=== PATIENT | female | born 1970 | race Caucasian/White ===

== ENCOUNTER 2025-04-09 08:08 | Inpatient (IN) ==
--- NOTE | 2025-04-09 08:26 | Emergency Department Note ---
History of Present Illness General Chief complaint: GI Assessment Stated complaint: DIVERTICULITIS Time Seen by Provider: 04/09/25 08:15 History of Present Illness Maximum Pain Intensity: 5 This is a 54-year-old female with a history of hypertension, polycystic kidney disease that presents to the emergency department via private vehicle with complaints of "abdominal pain". The patient said 5 days ago she began with bilateral flank pain which she describes as "kidney pain". She then notes that this became more lower abdominal pain and had trouble with bowel movements. She took stool softeners and produce bowel movements yesterday and overnight. No blood in the stool. The patient denies any fevers or chills. No nausea or vomiting. Home Medications Medication Instructions Recorded Confirmed Type vit B12 50 mcg-iodine 75 mcg-mag 1 cap PO DAILY #90 caps 02/12/19 04/09/25 Rx 100 [id number] 193 capsule cholecalciferol (vitamin D3) 25 25 mcg PO DAILY #30 caps 10/09/23 04/09/25 Rx mcg (1,000 unit) capsule famotidine 20 mg tablet 20 mg PO DAILY 04/09/25 04/09/25 History lisinopril 10 mg tablet 10 mg PO QAM 04/09/25 04/09/25 History Allergies Allergy/AdvReac Type Severity Reaction Status Date / Time No Known Allergies Allergy Verified 10/09/23 13:45 Past Med/Surg History Problem List (Updated 04/09/25 @ 14:17 by Dean Cortes PA-C) Colonic diverticular abscess (Acute) Hypertension (Chronic) Former smoker (Chronic) Iron deficiency anemia (Chronic) Mitral valve prolapse (Chronic) Polycystic kidney, autosomal dominant (Chronic) Vitamin D deficiency (Chronic) Surgical History H/O LEEP History of tubal ligation History of tonsillectomy and adenoidectomy History of esophagogastroduodenoscopy (EGD) History of colonoscopy Family History Brother Hypertension Kidney disease Father Hypertension Kidney disease Polycystic kidney disease Mother Hypertension Diabetes Uncle Myocardial infarction Sister Polycystic kidney disease Denies family history of Ovarian cancer Prostate cancer Breast cancer Colorectal cancer Social History Smoking Status: Former smoker Tobacco Type: Cigarettes Do You Dip or Chew Tobacco: No; Preferred Language: Setswana marital status: Current Living Situation: Family Current Living Situation Comment: One daughter in good health. 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 [place] Feels Safe at Home: Yes Review of Systems A total of 10 systems reviewed and were otherwise negative Physical Exam Vital Signs Vital Signs - 24 hr 04/09/25 08:12 04/09/25 09:44 04/09/25 09:48 Temperature 36.5 C Temperature Source Temporal Artery Scan Pulse Rate 100 H 79 80 Pulse Rate [Right Finger] Pulse Rate from SpO2 Sensor 80 Respiratory Rate 20 20 Respiratory Effort / Characteristics Non-Labored Spontaneous Respiratory Depth Normal Blood Pressure 131/79 Blood Pressure [Right Arm] Blood Pressure Mean 96 Blood Pressure Mean [Right Arm] Pulse Oximetry 100 99 Oxygen Delivery Method Room Air Sepsis Recent Fever Within 48 Hours No Sepsis New/Unexplained Change in Mental Status N/A Sepsis Action Taken by Nursing No Action Required 04/09/25 09:51 04/09/25 10:00 04/09/25 10:37 Temperature Temperature Source Pulse Rate 79 Pulse Rate [Right Finger] Pulse Rate from SpO2 Sensor 77 Respiratory Rate 18 Respiratory Effort / Characteristics Respiratory Depth Blood Pressure 135/84 121/78 Blood Pressure [Right Arm] Blood Pressure Mean 100 103 Blood Pressure Mean [Right Arm] Pulse Oximetry 98 Oxygen Delivery Method Sepsis Recent Fever Within 48 Hours Sepsis New/Unexplained Change in Mental Status Sepsis Action Taken by Nursing 04/09/25 10:37 04/09/25 10:39 04/09/25 10:42 Temperature Temperature Source Pulse Rate 94 H 91 H Pulse Rate [Right Finger] Pulse Rate from SpO2 Sensor 96 H 91 H Respiratory Rate 22 13 Respiratory Effort / Characteristics Respiratory Depth Blood Pressure 121/78 Blood Pressure [Right Arm] Blood Pressure Mean 103 Blood Pressure Mean [Right Arm] Pulse Oximetry 99 99 Oxygen Delivery Method Sepsis Recent Fever Within 48 Hours Sepsis New/Unexplained Change in Mental Status Sepsis Action Taken by Nursing 04/09/25 11:00 04/09/25 11:00 04/09/25 11:00 Temperature Temperature Source Pulse Rate 84 Pulse Rate [Right Finger] Pulse Rate from SpO2 Sensor 85 Respiratory Rate 23 Respiratory Effort / Characteristics Respiratory Depth Blood Pressure 123/71 123/71 Blood Pressure [Right Arm] Blood Pressure Mean 89 89 Blood Pressure Mean [Right Arm] Pulse Oximetry 99 Oxygen Delivery Method Sepsis Recent Fever Within 48 Hours Sepsis New/Unexplained Change in Mental Status Sepsis Action Taken by Nursing 04/09/25 11:12 04/09/25 11:16 04/09/25 11:21 Temperature Temperature Source Pulse Rate 87 90 Pulse Rate [Right Finger] 88 Pulse Rate from SpO2 Sensor 86 91 H Respiratory Rate 12 18 15 Respiratory Effort / Characteristics Respiratory Depth Blood Pressure Blood Pressure [Right Arm] 123/71 Blood Pressure Mean Blood Pressure Mean [Right Arm] 88 Pulse Oximetry 100 99 98 Oxygen Delivery Method Room Air Sepsis Recent Fever Within 48 Hours Sepsis New/Unexplained Change in Mental Status Sepsis Action Taken by Nursing 04/09/25 11:30 04/09/25 11:48 04/09/25 12:01 Temperature Temperature Source Pulse Rate 91 H 84 Pulse Rate [Right Finger] Pulse Rate from SpO2 Sensor 90 84 Respiratory Rate 20 13 Respiratory Effort / Characteristics Respiratory Depth Blood Pressure 133/102 H Blood Pressure [Right Arm] Blood Pressure Mean 106 Blood Pressure Mean [Right Arm] Pulse Oximetry 98 98 Oxygen Delivery Method Sepsis Recent Fever Within 48 Hours Sepsis New/Unexplained Change in Mental Status Sepsis Action Taken by Nursing 04/09/25 12:03 04/09/25 12:12 04/09/25 12:33 Temperature Temperature Source Pulse Rate 88 84 81 Pulse Rate [Right Finger] Pulse Rate from SpO2 Sensor 88 84 82 Respiratory Rate 24 23 18 Respiratory Effort / Characteristics Respiratory Depth Blood Pressure Blood Pressure [Right Arm] Blood Pressure Mean Blood Pressure Mean [Right Arm] Pulse Oximetry 97 97 98 Oxygen Delivery Method Sepsis Recent Fever Within 48 Hours Sepsis New/Unexplained Change in Mental Status Sepsis Action Taken by Nursing 04/09/25 12:57 04/09/25 13:03 04/09/25 13:15 Temperature Temperature Source Pulse Rate 81 77 78 Pulse Rate [Right Finger] Pulse Rate from SpO2 Sensor 81 78 78 Respiratory Rate 23 18 19 Respiratory Effort / Characteristics Respiratory Depth Blood Pressure Blood Pressure [Right Arm] Blood Pressure Mean Blood Pressure Mean [Right Arm] Pulse Oximetry 98 98 98 Oxygen Delivery Method Sepsis Recent Fever Within 48 Hours Sepsis New/Unexplained Change in Mental Status Sepsis Action Taken by Nursing 04/09/25 13:30 Temperature Temperature Source Pulse Rate 83 Pulse Rate [Right Finger] Pulse Rate from SpO2 Sensor 82 Respiratory Rate 14 Respiratory Effort / Characteristics Respiratory Depth Blood Pressure Blood Pressure [Right Arm] Blood Pressure Mean Blood Pressure Mean [Right Arm] Pulse Oximetry 99 Oxygen Delivery Method Sepsis Recent Fever Within 48 Hours Sepsis New/Unexplained Change in Mental Status Sepsis Action Taken by Nursing VITAL SIGNS - Vital signs and nursing notes were reviewed. Tachycardic at 100, otherwise stable and afebrile. GENERAL - 54-year-old female appearing her stated age who is in no acute distress. Communicates well with provider and answers questions appropriately. SKIN - Without rashes. HEAD - NC/AT. EYES - PERRL with EOMI bilaterally. Sclera anicteric. EARS - No deformities of external structures noted on gross examination bilaterally. No pain elicited with palpation of the tragus bilaterally. External auditory canals without discharge or otorrhea. Tympanic membranes pearly nielson without retraction or bulging. No fluid or purulent material visualized behind the TM. Handle of malleus, umbo, cone of light, pars tensa/flaccid all easily visualized. NOSE - Midline and without cyanosis. No epistaxis or purulent drainage noted. MOUTH/OROPHARYNX - Without perioral cyanosis. NECK - Neck with FROM. No nuchal rigidity. LUNGS - CTA CARDIAC - RRR ABDOMEN - Abdominal contour normal without pulsations or visible masses. BS normoactive all four quadrants. There is lower abdominal tenderness to palpation. No palpable masses, hepatosplenomegaly, or ascites noted. EXTREMITIES - No clubbing or peripheral cyanosis. +5/5 strength noted in UE/LE bilaterally. NEUROLOGIC - Cranial nerves II through XII grossly intact. PSYCH -alert, oriented and pleasant on exam Course Administered Medications Discontinued Medications Sodium Chloride (Nss) 1,000 mls @ 999 mls/hr IV .Q1H1M ONE Stop: 04/09/25 09:23 Last Infusion: 04/09/25 10:21 Dose: Infused Documented By: Admin: 04/09/25 08:53 Dose: 999 mls/hr Documented By: BETTYE Piperacillin Sod/Tazobactam Sod (Zosyn) 4.5 gm in 100 mls @ 200 mls/hr IV NOW ONE; Protocol Stop: 04/09/25 10:22 Last Infusion: 04/09/25 11:10 Dose: Infused Documented By: chanel Admin: 04/09/25 10:36 Dose: 200 mls/hr Documented By: BETTYE Vancomycin HCl 1,250 mg/ (Sodium Chloride) 525 mls @ 200 mls/hr IV NOW ONE Stop: 04/09/25 12:31 Last Admin: 04/09/25 11:07 Dose: 200 mls/hr Documented By: chanel Ioversol (Optiray 320 100ml) 94 ml IV ONCE ONE Stop: 04/09/25 09:20 Last Admin: 04/09/25 09:19 Dose: 94 ml Documented By: ADRIANA Medical Decision Making Laboratory Data 04/09/25 10:02 04/09/25 09:44 Lab Results 04/09/25 04/09/25 04/09/25 Range/Units 08:38 08:44 09:44 WBC Cancelled RBC Cancelled Hgb Cancelled POC Hgb 12.2 (12.0-16.0) g/dl Hct Cancelled POC Hct 36 L (37-47) % MCV Cancelled MCH Cancelled MCHC Cancelled RDW Std Deviation Cancelled RDW Coeff of Yuliana Cancelled Plt Count Cancelled MPV Cancelled Immature Gran % (Auto) Cancelled Neut % (Auto) Cancelled Lymph % (Auto) Cancelled [place] % (Auto) Cancelled Eos % (Auto) Cancelled Baso % (Auto) Cancelled Neut # (Auto) Cancelled Lymph # (Auto) Cancelled [place] # (Auto) Cancelled Eos # (Auto) Cancelled Baso # (Auto) Cancelled Immature Gran # (Auto) Cancelled Absolute Nucleated RBC Cancelled Nucleated RBC % (auto) Cancelled Neutrophils % (Manual) Cancelled Band Neutrophils % Cancelled Lymphocytes % (Manual) Cancelled Prolymphocyte % Cancelled Reactive Lymphs % (Man) Cancelled Monocytes % (Manual) Cancelled Eosinophils % (Manual) Cancelled Basophils % (Manual) Cancelled Metamyelocytes % (Man) Cancelled Myelocytes % (Man) Cancelled Promyelocytes % (Man) Cancelled Blast Cells % (Manual) Cancelled Plasma Cell % (Manual) Cancelled Other Cells % Cancelled Nucleated RBC % Cancelled Neutrophils # (Manual) Cancelled Band Neutrophils # Cancelled Total Absolute Neuts Cancelled Lymphocytes # (Manual) Cancelled Prolymphocyte # Cancelled Reactive Lymphs # Cancelled Total Abs Lymphocytes Cancelled Monocytes # (Manual) Cancelled Eosinophils # (Manual) Cancelled Basophils # (Manual) Cancelled Metamyelocytes # (Man) Cancelled Myelocytes # (Manual) Cancelled Promyelocytes # (Man) Cancelled Blast Cells # (Man) Cancelled Plasma Cell # (Manual) Cancelled Other Cells # Cancelled Nucleated RBCs # (Man) Cancelled Hypersegmented Neuts Cancelled Hyposegmented Neuts Cancelled Hypogranular Neuts Cancelled Large Granular Lymphs Cancelled # Lrg Granular Lymphs Cancelled Hairy Cells Cancelled Smudge Cells Cancelled Toxic Granulation Cancelled Toxic Vacuolation Cancelled Dohle Bodies Cancelled Troy Rods Cancelled Platelet Estimate Cancelled Hypogranular Platelets Cancelled Giant Platelets Cancelled Platelet Satelliting Cancelled RBC Morphology Cancelled Polychromasia Cancelled Hypochromasia Cancelled Poikilocytosis Cancelled Basophilic Stippling Cancelled Anisocytosis Cancelled Microcytosis Cancelled Macrocytosis Cancelled Spherocytes Cancelled Pappenheimer Bodies Cancelled Sickle Cells Cancelled Target Cells Cancelled Tear Drop Cells Cancelled Ovalocytes Cancelled Stomatocytes Cancelled Smith-Dorothy Bodies Cancelled Echinocytes Cancelled Acanthocytes (Spur) Cancelled Rouleaux Cancelled RBC Agglutinates Cancelled Schistocytes Cancelled Sezary Cell Cancelled POC Sodium 131 L (135-144) mmol/L Sodium TNP 134 L POC Potassium 5.4 H (3.3-5.0) mmol/L Potassium TNP 3.9 POC Chloride 101 (101-112) mmol/L Chloride 99 (98-107) mmol/L Carbon Dioxide 25 (21-32) mmol/L POC Total CO2 25 (24-31) mmol/L Anion Gap TNP POC Anion Gap 12.0 L (16-25) mmol/L POC BUN 27 H (7-18) mg/dl BUN 20 (6-23) mg/dl Creatinine 0.89 (0.6-1.2) mg/dl POC Creatinine 1.0 (0.6-1.3) mg/dl Est Cr Clr Drug Dosing 70.3 ml/min eGFR 77.00 BUN/Creatinine Ratio 22.5 H (10-20) Glucose 121 H (70-99(Fasting)) mg/dl POC Glucose (other) 122 H (70-99) mg/dl Lactate (0.4-2.0) mmol/L Calcium 9.4 (8.6-10.3) mg/dl POC Ioniz Calcium Susan 1.00 L (1.12-1.32) mmol/l Total Bilirubin 0.7 (0.2-1.0) mg/dl AST TNP 9 L ALT 8 (7-52) U/L Alkaline Phosphatase 75 (34-104) U/L Total Protein 7.6 (6.0-8.3) gm/dl Albumin 3.7 (3.4-5.0) gm/dl Globulin 3.9 (2.5-4.0) gm/dl Albumin/Globulin Ratio 0.9 (0.9-2) Lipase 5 L (11-82) U/L Procalcitonin (0-0.5) ng/ml Urine Color Urine Appearance (Clear) Urine pH (4.5-7.5) Ur Specific [place] (1.000-1.030) Urine Protein (Negative) Urine Glucose (UA) (Negative) Urine Ketones (Negative) Urine Blood (Negative) Urine Nitrite (Negative) Urine Bilirubin (Negative) Urine Urobilinogen (Negative) Ur Leukocyte Esterase (Negative) Urine WBC (Auto) (0-5) /hpf Urine RBC (Auto) (0-2) /hpf U Hyaline Cast (Auto) (0-2) /lpf U Epithel Cells (Auto) (0-2) /hpf Urine Bacteria (Auto) (None Seen) Urine Comment Blood Parasites ID Cancelled 04/09/25 04/09/25 04/09/25 Range/Units 10:02 10:07 10:38 WBC 11.66 H RBC 3.64 L Hgb 10.0 L POC Hgb (12.0-16.0) g/dl Hct 30.8 L POC Hct (37-47) % MCV 84.6 MCH 27.5 MCHC 32.5 RDW Std Deviation 41.1 RDW Coeff of Yuliana 13.2 Plt Count 185 MPV 10.5 Immature Gran % (Auto) 0.5 Neut % (Auto) 85.1 Lymph % (Auto) 7.4 [place] % (Auto) 6.9 Eos % (Auto) 0.0 Baso % (Auto) 0.1 Neut # (Auto) 9.93 H Lymph # (Auto) 0.86 L [place] # (Auto) 0.80 H Eos # (Auto) 0.00 Baso # (Auto) 0.01 Immature Gran # (Auto) 0.06 Absolute Nucleated RBC Nucleated RBC % (auto) Neutrophils % (Manual) Band Neutrophils % Lymphocytes % (Manual) Prolymphocyte % Reactive Lymphs % (Man) Monocytes % (Manual) Eosinophils % (Manual) Basophils % (Manual) Metamyelocytes % (Man) Myelocytes % (Man) Promyelocytes % (Man) Blast Cells % (Manual) Plasma Cell % (Manual) Other Cells % Nucleated RBC % Neutrophils # (Manual) Band Neutrophils # Total Absolute Neuts Lymphocytes # (Manual) Prolymphocyte # Reactive Lymphs # Total Abs Lymphocytes Monocytes # (Manual) Eosinophils # (Manual) Basophils # (Manual) Metamyelocytes # (Man) Myelocytes # (Manual) Promyelocytes # (Man) Blast Cells # (Man) Plasma Cell # (Manual) Other Cells # Nucleated RBCs # (Man) Hypersegmented Neuts Hyposegmented Neuts Hypogranular Neuts Large Granular Lymphs # Lrg Granular Lymphs Hairy Cells Smudge Cells Toxic Granulation Toxic Vacuolation Dohle Bodies [place] Rods Platelet Estimate Hypogranular Platelets Giant Platelets Platelet Satelliting RBC Morphology Polychromasia Hypochromasia Poikilocytosis Basophilic Stippling Anisocytosis Microcytosis Macrocytosis Spherocytes Pappenheimer Bodies Sickle Cells Target Cells Tear Drop Cells Ovalocytes Stomatocytes Smith-Dorothy Bodies Echinocytes Acanthocytes (Spur) Rouleaux RBC Agglutinates Schistocytes [place] Cell POC Sodium (135-144) mmol/L Sodium POC Potassium (3.3-5.0) mmol/L Potassium POC Chloride (101-112) mmol/L Chloride (98-107) mmol/L Carbon Dioxide (21-32) mmol/L POC Total CO2 (24-31) mmol/L Anion Gap POC Anion Gap (16-25) mmol/L POC BUN (7-18) mg/dl BUN (6-23) mg/dl Creatinine (0.6-1.2) mg/dl POC Creatinine (0.6-1.3) mg/dl Est Cr Clr Drug Dosing ml/min eGFR BUN/Creatinine Ratio (10-20) Glucose (70-99(Fasting)) mg/dl POC Glucose (other) (70-99) mg/dl Lactate 0.8 (0.4-2.0) mmol/L Calcium (8.6-10.3) mg/dl POC Ioniz Calcium Susan (1.12-1.32) mmol/l Total Bilirubin (0.2-1.0) mg/dl AST ALT (7-52) U/L Alkaline Phosphatase (34-104) U/L Total Protein (6.0-8.3) gm/dl Albumin (3.4-5.0) gm/dl Globulin (2.5-4.0) gm/dl Albumin/Globulin Ratio (0.9-2) Lipase (11-82) U/L Procalcitonin 0.55 H (0-0.5) ng/ml Urine Color Yellow Urine Appearance Clear (Clear) Urine pH 6.5 (4.5-7.5) Ur Specific [place] 1.033 H (1.000-1.030) Urine Protein Negative (Negative) Urine Glucose (UA) Negative (Negative) Urine Ketones 1+ H (Negative) Urine Blood Trace H (Negative) Urine Nitrite Negative (Negative) Urine Bilirubin Negative (Negative) Urine Urobilinogen Negative (Negative) Ur Leukocyte Esterase Negative (Negative) Urine WBC (Auto) 0-5 (0-5) /hpf Urine RBC (Auto) 0-2 (0-2) /hpf U Hyaline Cast (Auto) 0-2 (0-2) /lpf U Epithel Cells (Auto) 0-2 (0-2) /hpf Urine Bacteria (Auto) None Seen (None Seen) Urine Comment Blood Parasites ID Imaging Data Radiologist's Impression: Abdomen/Pelvis CT 04/09/25 08:23 CT SCAN OF THE ABDOMEN AND PELVIS WITH IV CONTRAST CLINICAL HISTORY: Lower abdominal pain. Flank pain. COMPARISON STUDY: Renal ultrasound March 04, 2023. CT of the abdomen and pelvis May 13, 2012. TECHNIQUE: Following the IV administration of 94 cc of Optiray 320, CT scan of the abdomen and pelvis is performed from the lung bases to the proximal femora. Images are reviewed in the axial, sagittal, and coronal planes. IV contrast was administered without complication. A dose lowering technique was utilized adhering to the principles of ALARA. CT DOSE: 745.01 mGy.cm FINDINGS: Visualized lung bases are unremarkable. Innumerable hepatic and bilateral renal cysts are noted. The number of hepatic cysts as increased since prior CT. Renal cysts appear relatively similar in appearance. Associated renal enlargement is noted. Index right hepatic dome cyst on image 71 of 385 measures 4.9 cm. Several partially calcified left renal cysts are present. There is no hydronephrosis. The spleen, adrenal glands and pancreas are unremarkable. There is no evidence for a bowel obstruction. There is extensive colonic diverticulosis. Of note, there is extensive pelvic inflammation centered on the right lateral aspect of the distal sigmoid colon. There is a 1.6 cm pocket of extraluminal gas on image 287. This suggests a contained perforation, likely arising from a perforated sigmoid diverticulum. Adjacent inflammation is noted as well as a 2.5 x 2.5 cm pocket of fluid within the right hemipelvis, adjacent to small bowel is. This has peripheral enhancement and suggests a developing abscess. No drainable fluid collection is present. There is associated extraperitoneal/retroperitoneal infiltration which extends superiorly into the presacral region. Right ureteral wall thickening is reactive. Intraperitoneal inflammation is also noted. There is moderate wall thickening of several adjacent ileal loops which is likely reactive. IMPRESSION: 1. Colonic diverticulosis. Extensive pelvic inflammation likely secondary to perforated diverticulitis of the sigmoid colon. Small pocket of extraluminal gas consistent with a contained perforation along the distal sigmoid colon. Associated retroperitoneal/extraperitoneal and intraperitoneal inflammation, as described above. Adjacent 2.5 x 2.5 cm pocket of fluid within the right hemipelvis with peripheral enhancement. This suggests a developing abscess. No drainable fluid collections. Wall thickening of several adjacent small bowel loops and the right ureter is likely reactive. Surgical consultation is recommended. In addition, a follow-up colonoscopy once symptoms resolve is recommended to exclude the possibility of an underlying colonic lesion. 2. Innumerable renal and hepatic cysts consistent with autosomal dominant polycystic kidney disease. 3. No bowel obstruction. ACT 112: Negative or not required by law. Electronically signed by: Tushar Holman M.D. 04/09/2025 9:51 AM MDM Narrative Patient was seen and evaluated as above in room B9. Review was performed of triage nursing notes and vital signs. I did review pertinent previous visits and patient history. After obtaining a thorough history and physical examination the above work up was performed. Patient presents with the above symptoms. She notes 5 days of flank/abdominal pain, intermittent fevers. On assessment she has a benign abdomen. Her vital signs are stable. She does appear clinically dry. Options of care were discussed with the patient. IV access was established. Labs were drawn. There is leukocytosis 11.66. Mild anemia at 10.0. Hyponatremia 134. No emergent metabolic disturbance. The patient's procalcitonin is mildly elevated and lactate is normal. She respectfully declined pain medication. CT scan as above. There are extensive inflammatory findings suggestive of likely perforated diverticulitis with fluid collections. I did order IV antibiotics. Blood cultures, lactate, Pro-Christopher also added. General surgery consultation recommended. [id number] called and spoke with JORGE ALBERTO Perdomo with interventional radiology. We reviewed the imaging. The fluid collections are not amenable to IR drainage noting location. [id number] spoke with Dr. Gaytan, general surgery. Plan at this time is IV antibiotics and for the present time no indication for emergent surgery. Patient will be admitted to the medicine service. Please refer to further documentation regarding her stay. GCS: 15 In the evaluation and treatment of this patient the following differential diagnoses were entertained: Diverticulitis, perforation, abscess, UTI, pyelonephritis, among others Impression & Plan Colonic diverticular abscess Discharge Plan Visit Data Chief Complaint: GI Assessment Stated Complaint: DIVERTICULITIS ED Provider: Manolo Perez ED Midlevel Provider: Dean Cortes Discharge Problem: Colonic diverticular abscess Patient Disposition: Admitted As Inpatient Condition: Good Forms Stand Alone Forms: My Cam[employer] Prescriptions Prescriptions: No Action [id number] 50 mcg-75 mcg -100 mg capsule 1 cap PO DAILY Qty: 90 0RF cholecalciferol (vitamin D3) 25 mcg (1,000 unit) capsule 25 mcg PO DAILY Qty: 30 0RF famotidine 20 mg Tablet 20 mg PO DAILY lisinopril 10 mg tablet 10 mg PO QAM Referrals Referrals: PCP,NO [Primary Care Provider] -
[2025-04-09] MEDS: SODIUM CHLORIDE 0.9% 1,000 ML IV ONE (08:53)
[2025-04-09 09:14] LABS: Alanine Aminotransferase 8 U/L (7-52); Albumin Globulin Ratio 0.9 (0.9-2); Albumin Level 3.7 gm/dl (3.4-5.0); Alkaline Phosphatase 75 U/L (34-104); Bilirubin,Total 0.7 mg/dl (0.2-1.0); Blood Urea Nitrogen 20 mg/dl (6-23); Calcium 9.4 mg/dl (8.6-10.3); Carbon Dioxide 25 mmol/L (21-32); Chloride 99 mmol/L (98-107); Creatinine Clr Calc Pharmacy 70.3 ml/min; Globulin 3.9 gm/dl (2.5-4.0); Glucose 121 mg/dl (70-99(Fasting)); Lipase 5 U/L (11-82); Total Protein 7.6 gm/dl (6.0-8.3)
[2025-04-09] MEDS: OPTIRAY 320 100ml IV ONE (09:19)
--- NOTE | 2025-04-09 09:52 | CT Scan Report ---
CT SCAN OF THE ABDOMEN AND PELVIS WITH IV CONTRAST CLINICAL HISTORY: Lower abdominal pain. Flank pain. COMPARISON STUDY: Renal ultrasound March 04, 2023. CT of the abdomen and pelvis May 13 2. TECHNIQUE: Following the IV administration of 94 cc of Optiray 320, CT scan of the abdomen and pelvi s is performed from the lung bases to the proximal femora. Images are reviewed in the axial, sagittal , and coronal planes. IV contrast was administered without complication. A dose lowering technique wa s utilized adhering to the principles of ALARA. CT DOSE: 745.01 mGy.cm FINDINGS: Visualized lung bases are unremarkable. Innumerable hepatic and bilateral renal cysts are n oted. The number of hepatic cysts as increased since prior CT. Renal cysts appear relatively similar in appearance. Associated renal enlargement is noted. Index right hepatic dome cyst on image 71 of 38 5 measures 4.9 cm. Several partially calcified left renal cysts are present. There is no hydronephros is. The spleen, adrenal glands and pancreas are unremarkable. There is no evidence for a bowel obstru ction. There is extensive colonic diverticulosis. Of note, there is extensive pelvic inflammation angel tered on the right lateral aspect of the distal sigmoid colon. There is a 1.6 cm pocket of extralumin al gas on image 287. This suggests a contained perforation, likely arising from a perforated sigmoid diverticulum. Adjacent inflammation is noted as well as a 2.5 x 2.5 cm pocket of fluid within the rig ht hemipelvis, adjacent to small bowel is. This has peripheral enhancement and suggests a developing abscess. No drainable fluid collection is present. There is associated extraperitoneal/retroperitonea l infiltration which extends superiorly into the presacral region. Right ureteral wall thickening is reactive. Intraperitoneal inflammation is also noted. There is moderate wall thickening of several ad jacent ileal loops which is likely reactive. IMPRESSION: 1. Colonic diverticulosis. Extensive pelvic inflammation likely secondary to perforated diverticuliti s of the sigmoid colon. Small pocket of extraluminal gas consistent with a contained perforation juice g the distal sigmoid colon. Associated retroperitoneal/extraperitoneal and intraperitoneal inflammati on, as described above. Adjacent 2.5 x 2.5 cm pocket of fluid within the right hemipelvis with periph eral enhancement. This suggests a developing abscess. No drainable fluid collections. Wall thickening of several adjacent small bowel loops and the right ureter is likely reactive. Surgical consultation is recommended. In addition, a follow-up colonoscopy once symptoms resolve is recommended to exclude the possibility of an underlying colonic lesion. 2. Innumerable renal and hepatic cysts consistent with autosomal dominant polycystic kidney disease. 3. No bowel obstruction. ACT 112: Negative or not required by law. Electronically signed by: Tushar Holman M.D. 04/09/2025 9:51 AM
[2025-04-09] MEDS ORDERED: VANCOMYCIN CONSULT ACTIVE PRN (09:54)
[2025-04-09 10:17] LABS: Potassium 3.9 mmol/L (3.5-5.1); Sodium 134.0 mmol/L (136-145)
[2025-04-09 10:22] LABS: Hematocrit (blood only) 30.8 % (37.0-47.0); Hemoglobin 10.0 g/dl (12.0-16.0); Immature Granulocytes # (auto) 0.06 K/uL (0.01-0.20); Immature Granulocytes % (auto) 0.5 %; Mean Corpuscular Hemoglobin 27.5 pg (25.0-34.0); Mean Corpuscular Volume 84.6 fL (80.0-100.0); Platelet Count 185 K/uL (130-400); RDW Standard Deviation 41.1 fL (36.4-46.3); Red Blood Count 3.64 M/uL (4.20-5.40); White Blood Count 11.66 K/ul (4.8-10.8)
[2025-04-09] MEDS: PIPERACILLIN/TAZOBACTAM 4.5 GM/100 ML BAG IV ONE (10:36)
[2025-04-09] MEDS: VANCOMYCIN HCL 1,250 MG in SODIUM CHLORIDE 0.9% 500 ML IV ONE (11:07)
[2025-04-09 11:15] LABS: Appearance Urine Clear (Clear); Bacteria Urine Automated None Seen (None Seen); Cast Urine Automated 0-2 /lpf (0-2); Epithelial Cell Urine Auto 0-2 /hpf (0-2); Glucose Urine UA Negative (Negative); RBC Urine Automated 0-2 /hpf (0-2); WBC Urine Automated 0-5 /hpf (0-5)
--- NOTE | 2025-04-09 12:04 | History & Physical Report ---
Date of Service April 09, 2025 Assessment & Plan (1) Hypertension: (2) Polycystic kidney, autosomal dominant: (3) Vitamin D deficiency: (4) Mitral valve prolapse: (5) Iron deficiency anemia: (6) Colonic diverticular abscess: Plan #acute colonic diverticulitis #acute diverticulitis abscess - CT findings, not amenable to interventional radiology drainage, consult to general surgery initiate n.p.o., conservative measures at this time. - Strong preference for patient given her family history for colorectal surgery consult if intervention required - Zosyn initiated in the emergency department, with consult for vancomycin loading, MRSA swab sent - n.p.o., LR at 100 cc/h - serial inflammatory markers - minimal symptoms, no signs of obstruction or ileus. No indication for NG at this time #autosomal dominant polycystic kidney disease - follows with nephrology, will consult during hospitalization, blood pressures have been fairly well-controlled on lisinopril alone - will maintain a tight window for fluid status, minimize dehydration. Labile blood pressures initiate Vasotec if an acute blood pressure abortive medication is required #hypertension - continue lisinopril, within goal at this time, euvolemic #iron deficiency anemia - continue to monitor, within normal range at this time #vitamin D deficiency - hold supplement for now, no further testing required #FEN - n.p.o. as above, LR at 100 cc/h through the night. 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 She does have parents that are assisting. Consult to case management #CODE STATUS - full code per her wishes History of Present Illness Chief Complaint: abdominal pain Primary Care Provider: NO PCP 54-year-old female history of autosomal dominant polycystic kidney disease, hypertension, iron deficiency anemia, vitamin D deficiency with strong family history of colonic diverticulitis diverticulosis presents with a 1 week history of progressive lower abdominal pain. Dyspepsia. And most recently fevers chills and generalized malaise. States she was at her normal baseline of health then approximately 5 to 6 days ago she developed some mild discomfort. Not unusual for the type of cramping she would get with her polycystic kidney disease so she did not think much of it then approximately 3 days ago she developed more colicky type cramping in the lower abdomen decreased stool output. Mild nausea vomiting. Then over the last 48 hours felt feverish at times chills at times. And increasing malaise. Secondary to progressive symptoms she came to the emergency department for further evaluation. Initial evaluation with CT scan shows colonic diverticulosis/diverticulitis with a small amount of extraluminal free air and small fluid collection consistent with contained fluid early abscess. General surgery consulted recommended conservative management for the interim. She was given Zosyn, consult for vancomycin and referred for admission. Pain is well-controlled at this time minimal without palpation. Appetite has been decreased. Stool out had it but has been more formed over the last couple days. No unusual changes there. She does report several relatives with issues with diverticulitis, abscess and repetitive's surgical intervention. She has never had an episode of diverticulitis/diverticulosis or GI surgery in the past Allergies Allergy/AdvReac Type Severity Reaction Status Date / Time No Known Allergies Allergy Verified 10/09/23 13:45 Home Medications Medication Instructions Recorded Confirmed Type vit B12 50 mcg-iodine 75 mcg-mag 1 cap PO DAILY #90 caps 02/12/19 04/09/25 Rx 100 [id number] 193 capsule cholecalciferol (vitamin D3) 25 25 mcg PO DAILY #30 caps 10/09/23 04/09/25 Rx mcg (1,000 unit) capsule famotidine 20 mg tablet 20 mg PO DAILY 04/09/25 04/09/25 History lisinopril 10 mg tablet 10 mg PO QAM 04/09/25 04/09/25 History Past Med/Surg History Problem List (Updated 04/09/25 @ 11:59 by Mayco Silverman MD) Colonic diverticular abscess Hypertension (Chronic) Former smoker (Chronic) Iron deficiency anemia (Chronic) Mitral valve prolapse (Chronic) Polycystic kidney, autosomal dominant (Chronic) Vitamin D deficiency (Chronic) Surgical History H/O LEEP History of tubal ligation History of tonsillectomy and adenoidectomy History of esophagogastroduodenoscopy (EGD) History of colonoscopy Family History Brother Hypertension Kidney disease Father Hypertension Kidney disease Polycystic kidney disease Mother Hypertension Diabetes Uncle Myocardial infarction Sister Polycystic kidney disease Denies family history of Ovarian cancer Prostate cancer Breast cancer Colorectal cancer Social History Smoking Status: Former smoker Tobacco Type: Cigarettes Do You Dip or Chew Tobacco: No; Preferred Language: Slovenian marital status: Current Living Situation: Family Current Living Situation Comment: One daughter in good health. 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 [place] Feels Safe at Home: Yes Review of Systems Review of Systems: All systems reviewed & are unremarkable except as noted in HPI & below Eyes: no photophobia Respiratory: + dyspnea; no cough and no hemoptysis Cardiovascular: no chest pain, no chest pain with activity, no palpitations an d no lightheadedness Gastrointestinal: as per Subjective / HPI Genitourinary: as per Subjective / HPI Integumentary: no rash and no change in skin color Physical Exam Constitutional: WD/WN, vitals as above Eyes: PERRL, conjunctivae normal, anicteric sclerae ENMT: external ear and nose normal, oropharynx normal Mouth: dentition not poor MMM Respiratory: normal respiratory effort, lungs clear to auscultation Cardiovascular: RRR, no murmur, no edema Gastrointestinal (Abdomen): decreased bowel sounds, no distention, diffuse poorly localized tenderness across the lower aspect of the abdomen with no mass guarding or rebound. Palpation along the abdomen makes as though she feels as if she would need to urinate. No signs of heidy peritonitis Musculoskeletal: no cyanosis or clubbing, extremities motor strength 5/5 Skin: no rashes, warm and dry Neurologic: PERRL, EOMI, accommodation nl, no face palsy, no dysarthria Results & Data Results & Data Vital Signs (Past 12 Hours) Vital Signs Temp Pulse Pulse Resp BP BP Pulse Ox 04/09/25 11:16 88 18 123/71 99 04/09/25 11:12 87 12 100 04/09/25 11:00 123/71 04/09/25 11:00 123/71 04/09/25 11:00 84 23 99 04/09/25 10:42 91 H 13 99 04/09/25 10:39 94 H 22 99 04/09/25 10:37 121/78 04/09/25 10:37 121/78 04/09/25 10:00 135/84 04/09/25 09:51 79 18 98 04/09/25 09:48 80 20 99 04/09/25 09:44 79 04/09/25 08:12 36.5 C 100 H 20 131/79 100 O2 Del Method 04/09/25 11:16 Room Air 04/09/25 11:12 04/09/25 11:00 04/09/25 11:00 04/09/25 11:00 04/09/25 10:42 04/09/25 10:39 04/09/25 10:37 04/09/25 10:37 04/09/25 10:00 04/09/25 09:51 04/09/25 09:48 04/09/25 09:44 04/09/25 08:12 Room Air Laboratory Results 04/09/25 10:07 Aerobic Blood Culture - Pending Blood Anaerobic Blood Culture - Pending 04/09/25 10:02 Aerobic Blood Culture - Pending Blood Anaerobic Blood Culture - Pending 04/09/25 04/09/25 04/09/25 10:38 10:07 10:02 WBC 11.66 H RBC 3.64 L Hgb 10.0 L POC Hgb Hct 30.8 L POC Hct MCV 84.6 MCH 27.5 MCHC 32.5 RDW Std Deviation 41.1 RDW Coeff of Yuliana 13.2 Plt Count 185 MPV 10.5 Immature Gran % (Auto) 0.5 Neut % (Auto) 85.1 Lymph % (Auto) 7.4 [place] % (Auto) 6.9 Eos % (Auto) 0.0 Baso % (Auto) 0.1 Neut # (Auto) 9.93 H Lymph # (Auto) 0.86 L [place] # (Auto) 0.80 H Eos # (Auto) 0.00 Baso # (Auto) 0.01 Immature Gran # (Auto) 0.06 Absolute Nucleated RBC Nucleated RBC % (auto) Neutrophils % (Manual) Band Neutrophils % Lymphocytes % (Manual) Prolymphocyte % Reactive Lymphs % (Man) Monocytes % (Manual) Eosinophils % (Manual) Basophils % (Manual) Metamyelocytes % (Man) Myelocytes % (Man) Promyelocytes % (Man) Blast Cells % (Manual) Plasma Cell % (Manual) Other Cells % Nucleated RBC % Neutrophils # (Manual) Band Neutrophils # Total Absolute Neuts Lymphocytes # (Manual) Prolymphocyte # Reactive Lymphs # Total Abs Lymphocytes Monocytes # (Manual) Eosinophils # (Manual) Basophils # (Manual) Metamyelocytes # (Man) Myelocytes # (Manual) Promyelocytes # (Man) Blast Cells # (Man) Plasma Cell # (Manual) Other Cells # Nucleated RBCs # (Man) Hypersegmented Neuts Hyposegmented Neuts Hypogranular Neuts Large Granular Lymphs # Lrg Granular Lymphs Hairy Cells Smudge Cells Toxic Granulation Toxic Vacuolation Dohle Bodies [place] Rods Platelet Estimate Hypogranular Platelets Giant Platelets Platelet Satelliting RBC Morphology Polychromasia Hypochromasia Poikilocytosis Basophilic Stippling Anisocytosis Microcytosis Macrocytosis Spherocytes Pappenheimer Bodies Sickle Cells Target Cells Tear Drop Cells Ovalocytes Stomatocytes [place] Bodies Echinocytes Acanthocytes (Spur) Rouleaux RBC Agglutinates Schistocytes Sezary Cell POC Sodium Sodium POC Potassium Potassium POC Chloride Chloride Carbon Dioxide POC Total CO2 Anion Gap POC Anion Gap POC BUN BUN Creatinine POC Creatinine Est Cr Clr Drug Dosing eGFR BUN/Creatinine Ratio Glucose POC Glucose (other) Lactate 0.8 Calcium POC Ioniz Calcium Susan Total Bilirubin AST ALT Alkaline Phosphatase Total Protein Albumin Globulin Albumin/Globulin Ratio Lipase Procalcitonin 0.55 H Urine Color Yellow Urine Appearance Clear Urine pH 6.5 Ur Specific [place] 1.033 H Urine Protein Negative Urine Glucose (UA) Negative Urine Ketones 1+ H Urine Blood Trace H Urine Nitrite Negative Urine Bilirubin Negative Urine Urobilinogen Negative Ur Leukocyte Esterase Negative Urine WBC (Auto) 0-5 Urine RBC (Auto) 0-2 U Hyaline Cast (Auto) 0-2 U Epithel Cells (Auto) 0-2 Urine Bacteria (Auto) None Seen Urine Comment Blood Parasites ID 04/09/25 04/09/25 04/09/25 09:44 08:44 08:38 WBC Cancelled RBC Cancelled Hgb Cancelled POC Hgb 12.2 Hct Cancelled POC Hct 36 L MCV Cancelled MCH Cancelled MCHC Cancelled RDW Std Deviation Cancelled RDW Coeff of Yuliana Cancelled Plt Count Cancelled MPV Cancelled Immature Gran % (Auto) Cancelled Neut % (Auto) Cancelled Lymph % (Auto) Cancelled [place] % (Auto) Cancelled Eos % (Auto) Cancelled Baso % (Auto) Cancelled Neut # (Auto) Cancelled Lymph # (Auto) Cancelled [place] # (Auto) Cancelled Eos # (Auto) Cancelled Baso # (Auto) Cancelled Immature Gran # (Auto) Cancelled Absolute Nucleated RBC Cancelled Nucleated RBC % (auto) Cancelled Neutrophils % (Manual) Cancelled Band Neutrophils % Cancelled Lymphocytes % (Manual) Cancelled Prolymphocyte % Cancelled Reactive Lymphs % (Man) Cancelled Monocytes % (Manual) Cancelled Eosinophils % (Manual) Cancelled Basophils % (Manual) Cancelled Metamyelocytes % (Man) Cancelled Myelocytes % (Man) Cancelled Promyelocytes % (Man) Cancelled Blast Cells % (Manual) Cancelled Plasma Cell % (Manual) Cancelled Other Cells % Cancelled Nucleated RBC % Cancelled Neutrophils # (Manual) Cancelled Band Neutrophils # Cancelled Total Absolute Neuts Cancelled Lymphocytes # (Manual) Cancelled Prolymphocyte # Cancelled Reactive Lymphs # Cancelled Total Abs Lymphocytes Cancelled Monocytes # (Manual) Cancelled Eosinophils # (Manual) Cancelled Basophils # (Manual) Cancelled Metamyelocytes # (Man) Cancelled Myelocytes # (Manual) Cancelled Promyelocytes # (Man) Cancelled Blast Cells # (Man) Cancelled Plasma Cell # (Manual) Cancelled Other Cells # Cancelled Nucleated RBCs # (Man) Cancelled Hypersegmented Neuts Cancelled Hyposegmented Neuts Cancelled Hypogranular Neuts Cancelled Large Granular Lymphs Cancelled # Lrg Granular Lymphs Cancelled Hairy Cells Cancelled Smudge Cells Cancelled Toxic Granulation Cancelled Toxic Vacuolation Cancelled Dohle Bodies Cancelled [place] Rods Cancelled Platelet Estimate Cancelled Hypogranular Platelets Cancelled Giant Platelets Cancelled Platelet Satelliting Cancelled RBC Morphology Cancelled Polychromasia Cancelled Hypochromasia Cancelled Poikilocytosis Cancelled Basophilic Stippling Cancelled Anisocytosis Cancelled Microcytosis Cancelled Macrocytosis Cancelled Spherocytes Cancelled Pappenheimer Bodies Cancelled Sickle Cells Cancelled Target Cells Cancelled Tear Drop Cells Cancelled Ovalocytes Cancelled Stomatocytes Cancelled [place] Bodies Cancelled Echinocytes Cancelled Acanthocytes (Spur) Cancelled Rouleaux Cancelled RBC Agglutinates Cancelled Schistocytes Cancelled Sezary Cell Cancelled POC Sodium 131 L Sodium 134 L TNP POC Potassium 5.4 H Potassium 3.9 TNP POC Chloride 101 Chloride 99 Carbon Dioxide 25 POC Total CO2 25 Anion Gap TNP POC Anion Gap 12.0 L POC BUN 27 H BUN 20 Creatinine 0.89 POC Creatinine 1.0 Est Cr Clr Drug Dosing 70.3 eGFR 77.00 BUN/Creatinine Ratio 22.5 H Glucose 121 H POC Glucose (other) 122 H Lactate Calcium 9.4 POC Ioniz Calcium Susan 1.00 L Total Bilirubin 0.7 AST 9 L TNP ALT 8 Alkaline Phosphatase 75 Total Protein 7.6 Albumin 3.7 Globulin 3.9 Albumin/Globulin Ratio 0.9 Lipase 5 L Procalcitonin Urine Color Urine Appearance Urine pH Ur Specific [place] Urine Protein Urine Glucose (UA) Urine Ketones Urine Blood Urine Nitrite Urine Bilirubin Urine Urobilinogen Ur Leukocyte Esterase Urine WBC (Auto) Urine RBC (Auto) U Hyaline Cast (Auto) U Epithel Cells (Auto) Urine Bacteria (Auto) Urine Comment Blood Parasites ID Cancelled Diagnostic Findings Abdomen/Pelvis CT 04/09/25 08:23 CT SCAN OF THE ABDOMEN AND PELVIS WITH IV CONTRAST CLINICAL HISTORY: Lower abdominal pain. Flank pain. COMPARISON STUDY: Renal ultrasound March 04, 2023. CT of the abdomen and pelvis May 13, 2012. TECHNIQUE: Following the IV administration of 94 cc of Optiray 320, CT scan of the abdomen and pelvis is performed from the lung bases to the proximal femora. Images are reviewed in the axial, sagittal, and coronal planes. IV contrast was administered without complication. A dose lowering technique was utilized adhering to the principles of ALARA. CT DOSE: 745.01 mGy.cm FINDINGS: Visualized lung bases are unremarkable. Innumerable hepatic and bilateral renal cysts are noted. The number of hepatic cysts as increased since prior CT. Renal cysts appear relatively similar in appearance. Associated renal enlargement is noted. Index right hepatic dome cyst on image 71 of 385 measures 4.9 cm. Several partially calcified left renal cysts are present. There is no hydronephrosis. The spleen, adrenal glands and pancreas are unremarkable. There is no evidence for a bowel obstruction. There is extensive colonic diverticulosis. Of note, there is extensive pelvic inflammation centered on the right lateral aspect of the distal sigmoid colon. There is a 1.6 cm pocket of extraluminal gas on image 287. This suggests a contained perforation, likely arising from a perforated sigmoid diverticulum. Adjacent inflammation is noted as well as a 2.5 x 2.5 cm pocket of fluid within the right hemipelvis, adjacent to small bowel is. This has peripheral enhancement and suggests a developing abscess. No drainable fluid collection is present. There is associated extraperitoneal/retroperitoneal infiltration which extends superiorly into the presacral region. Right ureteral wall thickening is reactive. Intraperitoneal inflammation is also noted. There is moderate wall thickening of several adjacent ileal loops which is likely reactive. IMPRESSION: 1. Colonic diverticulosis. Extensive pelvic inflammation likely secondary to perforated diverticulitis of the sigmoid colon. Small pocket of extraluminal gas consistent with a contained perforation along the distal sigmoid colon. Associated retroperitoneal/extraperitoneal and intraperitoneal inflammation, as described above. Adjacent 2.5 x 2.5 cm pocket of fluid within the right hemipelvis with peripheral enhancement. This suggests a developing abscess. No drainable fluid collections. Wall thickening of several adjacent small bowel loops and the right ureter is likely reactive. Surgical consultation is recommended. In addition, a follow-up colonoscopy once symptoms resolve is rec ommended to exclude the possibility of an underlying colonic lesion. 2. Innumerable renal and hepatic cysts consistent with autosomal dominant polycystic kidney disease. 3. No bowel obstruction. ACT 112: Negative or not required by law. Electronically signed by: Tushar Holman M.D. 04/09/2025 9:51 AM Code Status & VTE Plan VTE Prophylaxis Plan VTE Prophylaxis will be ordered: Yes PG Care Time/CCT Total # of Minutes Spent Total Time Spent with Patient: Total time spent is greater than 50% in coordination of care (as documented) at patient's floor/unit and/or counseling patient: Coding Level of Care Code 33022 INT INP/OBS CARE 2/55MIN Diagnoses Hypertension I10 Polycystic kidney, autosomal dominant Q61.2 Vitamin D deficiency E55.9 Mitral valve prolapse I34.1 Iron deficiency anemia D50.9 Colonic diverticular abscess K57.20
--- NOTE | 2025-04-09 12:15 | Surgery Consultation ---
Date of Consultation April 09, 2025 Assessment & Plan (1) Colonic diverticular abscess: This is a 54y F with a PMH of polycystic kidney disease and HTN who presents to the [facility] ED on 04/09/25 with complaints of abdominal pain and subjective fevers since earlier this week. She presented to the ER today for further evaluation. In the ED she underwent a CT a/p that showed colonic diverticulosis, with extensive pelvic inflammation likely secondary to perforated diverticulitis of the sigmoid colon. Small pocket of extraluminal gas consistent with a contained perforation along the distal sigmoid colon. Adjacent 2.5 x 2.5 cm pocket of fluid within the right hemipelvis with peripheral enhancement, concerning for a developing abscess. No drainable fluid collections. The patient reports a colonoscopy within the last [address] Hidalgo and knew she had diverticulosis. She never had an episode of diverticulitis before. WBC 11.6, Hbg 10, Cr 0.8. Vitals are stable. On exam patient is resting in bed in no distress. Abdomen is soft, not distended, with mild discomfort to palpation in the low midline. This is patient's 1st episode of diverticulitis. She is stable and abdominal exam is not concerning for acute abdomen. Size of abscess is too small to drain percutaneously. She will benefit from hospitalization for bowel rest and IV abx. She may have sips/chips. Continue IV abx. No indication for acute surgical intervention at this time. If patient deteriorates could consider re- scanning to evaluate size of abscess for possible drainage. Once recovers from this will recommend outpatient colonoscopy in 6-8 weeks. Will follow along. Supervising Physician Co-Signing Physician Notes Patient seen and examined, labs and image reviewed, agree with above. History of diverticulosis on colonoscopy, presented with abdominal discomfort and fevers. On exam she is afebrile with stable vitals. Her abdomen is soft, minimally tender to palpation in the pelvis and left lower quadrant. WBC normal. CT scan personally reviewed and agree with assessment of diverticulitis with a small pocket of air and gas that could represent a developing abscess versus contained perforation. Will plan for bowel rest, IV antibiotics, no surgical intervention at this time. Will need outpatient colonoscopy once the inflammation dies down. Surgery will follow, call with questions or concerns. History of Present Illness History of Present Illness This is a 54y F with a PMH of polycystic kidney disease and HTN who presents to the [facility] ED on 04/09/25 with complaints of abdominal pain and subjective fevers. Patient reports she started having bilateral back pain around her kidney's starting sat/saturday. She thought it was initially something to do with her kidneys and she started exercising more. Then starting Saturday she developed subjective fevers along with some abdominal pain in the lower midline region. This was associated with some constipation . She presented to the ER today for further evaluation. In the ED she underwent a CT a/p that showed colonic diverticulosis, with extensive pelvic inflammation likely secondary to perforated diverticulitis of the sigmoid colon. Small pocket of extraluminal gas consistent with a contained perforation along the distal sigmoid colon. Adjacent 2.5 x 2.5 cm pocket of fluid within the right hemipelvis with peripheral enhancement, concerning for a developing abscess. No drainable fluid collections. The patient reports a colonoscopy within the last [address] Hidalgo and knew she had diverticulosis. She never had an episode of diverticulitis before. She has a prior tubal ligation, but no other abdominal surgical history. She last at some bananas and toast yesterday. She denies any nausea/vomiting. She reports some constipation but now loose stools. She is voiding without issues. Allergies Allergy/AdvReac Type Severity Reaction Status Date / Time No Known Allergies Allergy Verified 10/09/23 13:45 Home Medications Medication Instructions Recorded Confirmed Type vit B12 50 mcg-iodine 75 mcg-mag 1 cap PO DAILY #90 caps 02/12/19 04/09/25 Rx 100 [id number] 193 capsule cholecalciferol (vitamin D3) 25 25 mcg PO DAILY #30 caps 10/09/23 04/09/25 Rx mcg (1,000 unit) capsule famotidine 20 mg tablet 20 mg PO DAILY 04/09/25 04/09/25 History lisinopril 10 mg tablet 10 mg PO QAM 04/09/25 04/09/25 History Patient History Surgical History H/O LEEP History of tubal ligation History of tonsillectomy and adenoidectomy History of esophagogastroduodenoscopy (EGD) History of colonoscopy Family History Brother Hypertension Kidney disease Father Hypertension Kidney disease Polycystic kidney disease Mother Hypertension Diabetes Uncle Myocardial infarction Sister Polycystic kidney disease Denies family history of Ovarian cancer Prostate cancer Breast cancer Colorectal cancer Social History Smoking Status: Former smoker Tobacco Type: Cigarettes Do You Dip or Chew Tobacco: No; Preferred Language: Nigerien marital status: Current Living Situation: Family Current Living Situation Comment: One daughter in good health. 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 Respiratory: no dyspnea Cardiovascular: no chest pain Gastrointestinal: + abdominal pain (lower midline) and + d iarrhea/loose stools; no bloating, no nausea and no vomiting Genitourinary: no problem reported Physical Exam Physical Exam: awake/alert, no distress Constitutional: well developed and well nourished; no acute distress Respiratory: no respiratory distress Cardiovascular: Rate/Rhythm: regular rhythm Gastrointestinal (Abdomen): Inspection/Auscultation: abdomen not distended Percussion/Palpation: + abdomen tender (only mildly tender to palpation in the low midline) and abdomen soft Results & Data Vital Signs (Past 12 Hours) Vital Signs Temp Pulse Pulse Resp BP BP Pulse Ox 04/09/25 11:16 88 18 123/71 99 04/09/25 11:12 87 12 100 04/09/25 11:00 123/71 04/09/25 11:00 123/71 04/09/25 11:00 84 23 99 04/09/25 10:42 91 H 13 99 04/09/25 10:39 94 H 22 99 04/09/25 10:37 121/78 04/09/25 10:37 121/78 04/09/25 10:00 135/84 04/09/25 09:51 79 18 98 04/09/25 09:48 80 20 99 04/09/25 09:44 79 04/09/25 08:12 97.7 F 100 H 20 131/79 100 O2 Del Method 04/09/25 11:16 Room Air 04/09/25 11:12 04/09/25 11:00 04/09/25 11:00 04/09/25 11:00 04/09/25 10:42 04/09/25 10:39 04/09/25 10:37 04/09/25 10:37 04/09/25 10:00 04/09/25 09:51 04/09/25 09:48 04/09/25 09:44 04/09/25 08:12 Room Air Diagnostic Findings CT SCAN OF THE ABDOMEN AND PELVIS WITH IV CONTRAST CLINICAL HISTORY: Lower abdominal pain. Flank pain. COMPARISON STUDY: Renal ultrasound March 04, 2023. CT of the abdomen and pelvis May 13, 2012. TECHNIQUE: Following the IV administration of 94 cc of Optiray 320, CT scan of the abdomen and pelvis is performed from the lung bases to the proximal femora. Images are reviewed in the axial, sagittal, and coronal planes. IV contrast was administered without complication. A dose lowering technique was utilized adhering to the principles of ALARA. CT DOSE: 745.01 mGy.cm FINDINGS: Visualized lung bases are unremarkable. Innumerable hepatic and bilateral renal cysts are noted. The number of hepatic cysts as increased since prior CT. Renal cysts appear relatively similar in appearance. Associated renal enlargement is noted. Index right hepatic dome cyst on image 71 of 385 measures 4.9 cm. Several partially calcified left renal cysts are present. There is no hydronephrosis. The spleen, adrenal glands and pancreas are unremarkable. There is no evidence for a bowel obstruction. There is extensive colonic diverticulosis. Of note, there is extensive pelvic inflammation centered on the right lateral aspect of the distal sigmoid colon. There is a 1.6 cm pocket of extraluminal gas on image 287. This suggests a contained perforation, likely arising from a perforated sigmoid diverticulum. Adjacent inflammation is noted as well as a 2.5 x 2.5 cm pocket of fluid within the right hemipelvis, adjacent to small bowel is. This has peripheral enhancement and suggests a developing abscess. No drainable fluid collection is present. There is associated extraperitoneal/retroperitoneal infiltration which extends superiorly into the presacral region. Right ureteral wall thickening is reactive. Intraperitoneal inflammation is also noted. There is moderate wall thickening of several adjacent ileal loops which is likely reactive. IMPRESSION: 1. Colonic diverticulosis. Extensive pelvic inflammation likely secondary to perforated diverticulitis of the sigmoid colon. Small pocket of extraluminal gas consistent with a contained perforation along the distal sigmoid colon. Associated retroperitoneal/extraperitoneal and intraperitoneal inflammation, as described above. Adjacent 2.5 x 2.5 cm pocket of fluid within the right hemipelvis with peripheral enhancement. This suggests a developing abscess. No drainable fluid collections. Wall thickening of several adjacent small bowel loops and the right ureter is likely reactive. Surgical consultation is recommended. In addition, a follow-up colonoscopy once symptoms resolve is recommended to exclude the possibility of an underlying colonic lesion. 2. Innumerable renal and hepatic cysts consistent with autosomal dominant polycystic kidney disease. 3. No bowel obstruction. ACT 112: Negative or not required by law. Electronically signed by: Tushar Holman M.D. 04/09/2025 9:51 AM PG Care Time/CCT Total # of Minutes Spent Total Time Spent with Patient: Total time spent is greater than 50% in coordination of care (as documented) at patient's floor/unit and/or counseling patient: Coding Level of Care Code 29920 IN/OBS CONSULT LVL 3,45M Diagnoses Colonic diverticular abscess K57.20
[2025-04-09] MEDS ORDERED: ONDANSETRON INJ 2 MG/ML 2 ML VIAL IV PRN (16:09)
[2025-04-09] MEDS: PIPERACILLIN/TAZOBACTAM 4.5 GM/100 ML BAG IV SCH (17:44)
[2025-04-09] MEDS: VANCOMYCIN HCL / NSS 1,000 MG/270 ML BAG IV SCH (17:58)
[2025-04-09] MEDS: SODIUM CHLORIDE 0.9% 1,000 ML IV SCH (18:07)
[2025-04-09] MEDS: LACTATED RINGER'S 1,000 ML IV SCH (18:18)
--- NOTE | 2025-04-09 19:42 | Pharmacy Report ---
Pharmacy PK ABX Note - Date of Service April 09, 2025 - Assessment and Plan Assessment 54 year old F receiving vancomycin/Zosyn for treatment of diverticulitis/colonic abscess. Pertinent microbiologic data includes: blood cultures pending Day # 1 of antimicrobial therapy. Plan Vancomycin * Loading dose: 1250 mg IV x 1 * Maintenance dose: 1000 mg IV every 12 hours * Regimen is predicted to achieve target AUC/BASHIR of 400-600 mg/L.hr * Trough level ordered for: 04/11/25 @0530 Pharmacy will continue to follow and will adjust dose/frequency as necessary. Thank you. Pharmacy has transitioned to AUC monitoring for vancomycin. AUC/BASHIR is the prefe rred PK/PD target and is associated with decreased risk of nephrotoxicity compared to traditional trough targets.
[2025-04-09] MEDS: ACETAMINOPHEN 1,000 MG/100 ML VIAL IV PRN (19:45)
[2025-04-10 07:19] LABS: Hematocrit (blood only) 30.1 % (37.0-47.0); Hemoglobin 9.9 g/dl (12.0-16.0); Immature Granulocytes # (auto) 0.03 K/uL (0.01-0.20); Immature Granulocytes % (auto) 0.3 %; Mean Corpuscular Hemoglobin 28.5 pg (25.0-34.0); Mean Corpuscular Volume 86.7 fL (80.0-100.0); Platelet Count 197 K/uL (130-400); RDW Standard Deviation 42.4 fL (36.4-46.3); Red Blood Count 3.47 M/uL (4.20-5.40); White Blood Count 8.58 K/ul (4.8-10.8)
[2025-04-10 07:37] LABS: Alanine Aminotransferase 5.0 U/L (7-52); Albumin Globulin Ratio 1.0 (0.9-2); Albumin Level 3.1 gm/dl (3.4-5.0); Alkaline Phosphatase 62.0 U/L (34-104); Anion Gap 10.0 (3-11); Bilirubin,Total 0.7 mg/dl (0.2-1.0); Blood Urea Nitrogen 17.0 mg/dl (6-23); Calcium 8.6 mg/dl (8.6-10.3); Carbon Dioxide 22.0 mmol/L (21-32); Chloride 109.0 mmol/L (98-107); Creatinine Clr Calc Pharmacy 71.1 ml/min; Globulin 3.0 gm/dl (2.5-4.0); Glucose 72.0 mg/dl (70-99(Fasting)); Potassium 3.7 mmol/L (3.5-5.1); Sodium 141.0 mmol/L (136-145); Total Protein 6.1 gm/dl (6.0-8.3)
[2025-04-10] MEDS: FAMOTIDINE 20 MG TAB PO SCH (09:24)
--- NOTE | 2025-04-10 11:40 | Surgery Progress Note ---
Date of Service April 10, 2025 Assessment & Plan (1) Colonic diverticular abscess: Plan: Diverticulitis with contained perforation versus abscess, not amenable to drainage at this time. Clinically improving Continue IV antibiotics Advance to clear liquid Potential transition to oral antibiotics and discharge on low fiber diet in the next 24 to 48 hours Will need follow-up as an outpatient as well as repeat colonoscopy Surgery will follow, call with questions or concerns Admission and Anticipated Discharge Date Admission Date: April 09, 2025 Subjective Admitted with diverticulitis with contained perforation versus developing abscess. Feels much better since presentation. Passing gas, no BM yet. No pain. Physical Exam Constitutional: WD/WN, vitals as above Gastrointestinal (Abdomen): Percussion/Palpation: + abdomen tender (Minimal left lower quadrant tenderness to palpation, improved) and abdomen soft; no guarding and abdomen not rigid Results & Data Vital Signs (Past 12 Hours) Vital Signs Temp Pulse Resp BP Pulse Ox O2 Del Method 04/10/25 08:19 37.5 C 70 18 167/83 H 100 Room Air PG Care Time/CCT Total # of Minutes Spent Total Time Spent with Patient: Total time spent is greater than 50% in coordination of care (as documented) at patient's floor/unit and/or counseling patient: Coding Level of Care Code 65365 SUB INP/OBS CARE 2/35MIN Diagnoses Colonic diverticular abscess K57.20
--- NOTE | 2025-04-10 13:00 | Hospitalist Progress Note ---
Date of Service April 10, 2025 Assessment & Plan (1) Hypertension: (2) Polycystic kidney, autosomal dominant: (3) Vitamin D deficiency: (4) Mitral valve prolapse: (5) Iron deficiency anemia: (6) Colonic diverticular abscess: Plan #acute colonic diverticulitis #acute diverticulitis abscess - CT findings, not amenable to interventional radiology drainage, consult to general surgery initiate n.p.o., conservative measures at this time. - Strong preference for patient given her family history for colorectal surgery consult if intervention required - Zosyn initiated in the emergency department, with consult for vancomycin loading, MRSA swab sent - see surgery notes, advance to clears, consideration for other oral antibiotics with Augmentin versus Cipro/Flagyl. Cultures remain negative. Will trend inflammatory markers but clinical improvement portends shorter course of hospitalization #autosomal dominant polycystic kidney disease - follows with nephrology, will consult during hospitalization, blood pressures have been fairly well-controlled on lisinopril alone - will maintain a tight window for fluid status, minimize dehydration. Labile blood pressures initiate Vasotec if an acute blood pressure abortive medication is required #hypertension - continue lisinopril, within goal at this time, euvolemic #iron deficiency anemia - continue to monitor, within normal range at this time #vitamin D deficiency - hold supplement for now, no further testing required #FEN - n.p.o. as above, LR at 100 cc/h through the night. 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 She does have parents that are assisting. Consult to case management #CODE STATUS - full code per her wishes Admission and Anticipated Discharge Date Admission Date: April 09, 2025 Subjective doing remarkably well this morning. Near completely resolution of her pain discomfort and cramping. Small amount of gas no resumption of bowel function as of yet. No nausea or vomiting. Actually feeling as though she is hungry and has an appetite. Denies fevers chills or other generalized signs of illness. Physical Exam Constitutional: WD/WN, vitals as above Eyes: PERRL, conjunctivae normal, anicteric sclerae ENMT: external ear and nose normal, oropharynx normal Mouth: dentition not poor MMM Respiratory: normal respiratory effort, lungs clear to auscultation Cardiovascular: RRR, no murmur, no edema Gastrointestinal (Abdomen): Normal bowel sounds, no palpable tenderness mass. No signs of peritonitis Musculoskeletal: no cyanosis or clubbing, extremities motor strength 5/5 Skin: no rashes, warm and dry Neurologic: PERRL, EOMI, accommodation nl, no face palsy, no dysarthria Results & Data Results & Data Vital Signs (Past 12 Hours) Vital Signs Temp Pulse Resp BP Pulse Ox O2 Del Method 04/10/25 08:19 37.5 C 70 18 167/83 H 100 Room Air Laboratory Results 04/09/25 10:07 Aerobic Blood Culture - Preliminary Blood No growth in Aerobic bottle after 24 hours. Anaerobic Blood Culture - Preliminary No growth in Anaerobic bottle after 24 hours. 04/09/25 10:02 Aerobic Blood Culture - Preliminary Blood No growth in Aerobic bottle after 24 hours. Anaerobic Blood Culture - Preliminary No growth in Anaerobic bottle after 24 hours. 04/10/25 06:45 WBC 8.58 RBC 3.47 L Hgb 9.9 L Hct 30.1 L MCV 86.7 MCH 28.5 MCHC 32.9 RDW Std Deviation 42.4 RDW Coeff of Yuliana 13.2 Plt Count 197 MPV 10.8 Immature Gran % (Auto) 0.3 Neut % (Auto) 82.7 Lymph % (Auto) 9.4 Leake % (Auto) 7.3 Eos % (Auto) 0.0 Baso % (Auto) 0.3 Neut # (Auto) 7.08 H Lymph # (Auto) 0.81 L Leake # (Auto) 0.63 H Eos # (Auto) 0.00 Baso # (Auto) 0.03 Immature Gran # (Auto) 0.03 Sodium 141 Potassium 3.7 Chloride 109 H Carbon Dioxide 22 Anion Gap 10 BUN 17 Creatinine 0.88 Est Cr Clr Drug Dosing 71.1 eGFR 78.05 BUN/Creatinine Ratio 19.3 Glucose 72 Calcium 8.6 Total Bilirubin 0.7 AST 9 L ALT 5 L Alkaline Phosphatase 62 C-Reactive Protein 28.73 H Total Protein 6.1 Albumin 3.1 L Globulin 3.0 Albumin/Globulin Ratio 1.0 Procalcitonin 0.36 PG Care Time/CCT Total # of Minutes Spent Total Time Spent with Patient: Total time spent is greater than 50% in coordination of care (as documented) at patient's floor/unit and/or counseling patient: Coding Level of Care Code 59307 SUB INP/OBS CARE 2/35MIN Diagnoses Hypertension I10 Polycystic kidney, autosomal dominant Q61.2 Vitamin D deficiency E55.9 Mitral valve prolapse I34.1 Iron deficiency anemia D50.9 Colonic diverticular abscess K57.20
[2025-04-11] MEDS: VANCOMYCIN LEVEL ONE (06:31)
[2025-04-11 06:49] LABS: Hematocrit (blood only) 31.3 % (37.0-47.0); Hemoglobin 9.8 g/dl (12.0-16.0); Immature Granulocytes # (auto) 0.03 K/uL (0.01-0.20); Immature Granulocytes % (auto) 0.5 %; Mean Corpuscular Hemoglobin 26.9 pg (25.0-34.0); Mean Corpuscular Volume 86.0 fL (80.0-100.0); Platelet Count 240 K/uL (130-400); RDW Standard Deviation 41.6 fL (36.4-46.3); Red Blood Count 3.64 M/uL (4.20-5.40); White Blood Count 5.92 K/ul (4.8-10.8)
[2025-04-11 07:11] LABS: Alanine Aminotransferase 8.0 U/L (7-52); Albumin Globulin Ratio 1.0 (0.9-2); Albumin Level 3.2 gm/dl (3.4-5.0); Alkaline Phosphatase 62.0 U/L (34-104); Anion Gap 7.0 (3-11); Bilirubin,Total 0.5 mg/dl (0.2-1.0); Blood Urea Nitrogen 10.0 mg/dl (6-23); Calcium 8.6 mg/dl (8.6-10.3); Carbon Dioxide 25.0 mmol/L (21-32); Chloride 109.0 mmol/L (98-107); Creatinine Clr Calc Pharmacy 70.3 ml/min; Globulin 3.1 gm/dl (2.5-4.0); Glucose 97.0 mg/dl (70-99(Fasting)); Potassium 3.3 mmol/L (3.5-5.1); Sodium 141.0 mmol/L (136-145); Total Protein 6.3 gm/dl (6.0-8.3)
[2025-04-11 07:33] VITALS: BP 125/65; PULSE 58; RESP 18; TEMP 97.9; O2SAT 100
--- NOTE | 2025-04-11 09:56 | Surgery Progress Note ---
Date of Service April 11, 2025 Assessment & Plan (1) Colonic diverticular abscess: Plan: Diverticulitis with contained perforation versus abscess, not amenable to drainage at this time. Abdominal pain has resolved, she is passing flatus and moving her bowels. She is tolerating clear liquid diet. Will advance to low fiber diet and see how she tolerates. If she does well, from surgical perspective, she can go home later today. 14 days of Augmentin sent to patient's pharmacy. She was instructed to follow-up with Dr. Gaytan in office in 2 weeks. Will need outpatient colonoscopy. Patient seen and examined with Dr. Gaytan. Admission and Anticipated Discharge Date Admission Date: April 09, 2025 Supervising Physician Co-Signing Physician Notes Patient seen and examined, labs reviewed, agree with above. Admitted for diverticulitis with contained perforation versus developing abscess. She feels much better than she did prior to arrival, tolerated clear liquids, passing gas and having small bowel movements. On exam she is afebrile with stable vitals, her abdomen is soft, minimal tenderness to palpation in the left lower quadrant, improved. WBC normal. Will advance to low fiber diet, potential discharge on 2 weeks oral antibiotics either today or tomorrow. Follow-up with me in the [facility] surgery clinic and we will consider repeat imaging as an outpatient. Subjective Lisa is doing very well this morning. Reports that her abdominal pain that brought her to the hospital has resolved. She has been passing gas and moving her bowels. She tolerated clear liquid diet without issue yesterday and this morning. Review of Systems Constitutional: as per Subjective / HPI; no fever and no chills Gastrointestinal: no abdominal pain, no nausea and no vomiting Physical Exam Constitutional: WD/WN, vitals as above Gastrointestinal (Abdomen): Percussion/Palpation: abdomen soft; abdomen nontender, no guarding and abdomen not rigid Results & Data Vital Signs (Past 12 Hours) Vital Signs Temp Pulse Resp BP Pulse Ox O2 Del Method 04/11/25 07:32 36.6 C 58 L 18 125/65 100 Room Air 04/10/25 23:22 37.1 C 62 16 125/69 98 Room Air PG Care Time/CCT Total # of Minutes Spent Total Time Spent with Patient: Total time spent is greater than 50% in coordination of care (as documented) at patient's floor/unit and/or counseling patient: Coding Level of Care Code 89260 SUB INP/OBS CARE 07/18MIN Diagnoses Colonic diverticular abscess K57.20
--- NOTE | 2025-04-11 11:29 | Discharge Summary ---
Discharge Summary Date of Service April 11, 2025 Principal Dx & Hospital Course #1 = Principal Diagnosis (1) Hypertension: (2) Polycystic kidney, autosomal dominant: (3) Vitamin D deficiency: (4) Mitral valve prolapse: (5) Iron deficiency anemia: (6) Colonic diverticular abscess: Plan #acute colonic diverticulitis #acute diverticulitis abscess - CT findings, not amenable to interventional radiology drainage, consult to general surgery initiate n.p.o., conservative measures at this time. - Strong preference for patient given her family history for colorectal surgery consult if intervention required - Zosyn initiated in the emergency department, with consult for vancomycin loading, MRSA swab sent - see surgery notes, advance to clears, consideration for other oral antibiotics with Augmentin versus Cipro/Flagyl. Cultures remain negative. Will trend inflammatory markers but clinical improvement portends shorter course of hospitalization - tolerating advance diet well, 14-day course of Augmentin sent to pharmacy by surgery. Will follow-up with Dr. Gaytan in the outpatient clinic in 2 weeks. Call or return here reach out to the surgery clinic if any recurrence of previous symptoms. #autosomal dominant polycystic kidney disease - follows with nephrology, will consult during hospitalization, blood pressures have been fairly well-controlled on lisinopril alone - will maintain a tight window for fluid status, minimize dehydration. Labile blood pressures initiate Vasotec if an acute blood pressure abortive medication is required - Resume lisinopril, no changes made to regimen during this hospitalization #hypertension - continue lisinopril, within goal at this time, euvolemic #iron deficiency anemia - continue to monitor, within normal range at this time #vitamin D deficiency - hold supplement for now, no further testing required #FEN - n.p.o. as above, LR at 100 cc/h through the night. 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 She does have parents that are assisting. Consult to case management Admission HPI Per Admitting Provider 54-year-old female history of autosomal dominant polycystic kidney disease, hypertension, iron deficiency anemia, vitamin D deficiency with strong family history of colonic diverticulitis diverticulosis presents with a 1 week history of progressive lower abdominal pain. Dyspepsia. And most recently fevers chills and generalized malaise. States she was at her normal baseline of health then approximately 5 to 6 days ago she developed some mild discomfort. Not unusual for the type of cramping she would get with her polycystic kidney disease so she did not think much of it then approximately 3 days ago she developed more colicky type cramping in the lower abdomen decreased stool output. Mild nausea vomiting. Then over the last 48 hours felt feverish at times chills at times. And increasing malaise. Secondary to progressive symptoms she came to the emergency department for further evaluation. Initial evaluation with CT scan shows colonic diverticulosis/diverticulitis with a small amount of extraluminal free air and small fluid collection consistent with contained fluid early abscess. General surgery consulted recommended conservative management for the interim. She was given Zosyn, consult for vancomycin and referred for admission. Pain is well-controlled at this time minimal without palpation. Appetite has been decreased. Stool out had it but has been more formed over the last couple days. No unusual changes there. She does report several relatives with issues with diverticulitis, abscess and repetitive's surgical intervention. She has never had an episode of diverticulitis/diverticulosis or GI surgery in the past Discharge Exam Constitutional WD/WN, vitals as above Eyes PERRL, conjunctivae normal, anicteric sclerae Respiratory normal respiratory effort, lungs clear to auscultation Cardiovascular RRR, no murmur, no edema Gastrointestinal (Abdomen) normal bowel sounds, soft, nontender, no hepatosplenomegaly Skin no rashes, warm and dry Neurologic PERRL, EOMI, accommodation nl, no face palsy, no dysarthria Discharge Plan Discharge Items Patient Disposition: Home - Self-Care Reason For Visit: COLONIC DIVERTICULITIS/ABSCESS Discharge Diagnosis: colonic diverticulosis Condition on Discharge: Good Health Concerns: - follow a low fiber diet until your symptoms complete completely resolved and you have finished your antibiotics. You were given 2 weeks worth of Augmentin. Please complete the full 2-week course. Follow-up with Dr. Gaytan in the outpatient office in 2 weeks. If you notice any recurrence of symptoms fevers chills generalized malaise abdominal pain or changes in stools. Contact the outpatient clinic or if significant return to the emergency department for recheck. Activity: Resume your previous activity Non-emergency contact: Primary Care Provider Call non-emergency contact if: you have any medication questions, your symptoms worsen and you have a fever Follow-up/Referrals: PCP,NO [Primary Care Provider] - Diet: Low Fiber Addtl Attending Provider Instructions: - Follow-up with Dr. Gaytan in the surgery clinic. PCP for long-term dietary management recommendations and monitoring Pending Studies at Discharge: No Stand-Alone Forms: [employer], Smoking Cessation Medications and DC Order Prescriptions: New amoxicillin-pot clavulanate 875-125 mg tablet 1 tab PO Q12H 14 Days Qty: 28 0RF Continued [id number] 50 mcg-75 mcg -100 mg capsule 1 cap PO DAILY Qty: 90 0RF cholecalciferol (vitamin D3) 25 mcg (1,000 unit) capsule 25 mcg PO DAILY Qty: 30 0RF famotidine 20 mg Tablet 20 mg PO DAILY lisinopril 10 mg tablet 10 mg PO QAM Discharge Orders: Discharge Order (Routine); Ordered 04/11/25 Ordered By: Mayco Ramires/Other Patient Handouts: Low-Fiber Diet, Diverticulosis and Diverticulitis Admission Data Admit Date/Time: 04/09/25 11:47 Attending Provider: Mayco Silverman Admit Provider: Mayco Silverman Primary Care Provider: PCP,NO Other Providers: Mayco Silverman; Viky Cadet Hospital Stay Data Consultations 04/09/25 10:12 ED Decision to Admit Stat 04/09/25 16:09 Consult General Surgery Routine Diagnostic Imagining Performed 04/09/25 08:23 CT abd pelvis IV con only Stat Pending Results Patient Have Any Pending Studies at Discharge: No Discharge Instructions Given to Patient (Per Discharging Provider) - Follow-up with Dr. Gaytan in the surgery clinic. PCP for long-term dietary management recommendations and monitoring Total Time Total Time Spent Total Time Spent (In Minutes): 22 minutes spent discussing case with specialty care, arranging for discharge medications. Reviewing and education patient on low fiber diet and appropriate follow-up plan. Coding Level of Care Code 49511 IN/OBS DISCH 30 MIN/LESS Diagnoses Hypertension I10 Polycystic kidney, autosomal dominant Q61.2 Vitamin D deficiency E55.9 Mitral valve prolapse I34.1 Iron deficiency anemia D50.9 Colonic diverticular abscess K57.20
== END 2025-04-11 14:30 | disposition home or self-care (01) | DRG 392 ==
LOC: ED 08:08 → 3W 11:47

== ENCOUNTER 2025-04-16 14:02 | Inpatient (IN) ==
--- NOTE | 2025-04-16 14:49 | Emergency Department Note ---
Impression & Plan Abdominal pain, Colonic diverticular abscess, Polycystic kidney, autosomal dominant ED Provider Note NAME: VALENCIA RICHARD AGE: 54 SEX: F : 1970 ARRIVES VIA: Walk-In INFORMANT: Patient ED PROVIDER(S): Jero Villa DO CHIEF COMPLAINT: Abdominal pain HPI: Patient is a 54-year-old female who presents to the ER with a past medical history of polycystic kidney disease, anemia, smoker, hypertension and recent admission for colonic diverticular abscess who was discharged on Saturday. She notes that she has been taking the Augmentin. She is feeling great Saturday and Saturday but Saturday through today she started feeling worse. She mitts to temps of 100 but nothing higher. He denies any headache or change in vision. No chest pain or shortness of breath. No cough or congestion. No dysuria, urgency or frequency. No other exacerbating or remitting factors. ADDITIONAL HISTORY OBTAINED: Per HPI Chronic Medical/Social Conditions Affecting Care: Per HPI PAST MEDICAL HISTORY:See Below PAST SURGICAL HISTORY:See Below FAMILY HISTORY:See Below SOCIAL HISTORY:See Below HOME MEDICATIONS:See Below ALLERGIES:See Below VITALS:See Below PHYSICAL EXAMINATION: GENERAL: Sitting up in bed, alert, well appearing, well nourished, no distress, non-toxic EYE EXAM: normal conjunctiva. PERRL and EOM's grossly intact. OROPHARYNX: no exudate, no erythema, lips, buccal mucosa, and tongue normal and mucous membranes are moist NECK: supple, no nuchal rigidity, no adenopathy, non-tender LUNGS: Clear to auscultation. Normal chest wall mechanics HEART: no murmurs, S1 normal and S2 normal ABDOMEN: abdomen soft, non-tender, normo-active bowel sounds, no masses, no rebound or guarding. UPPER EXTREMITIES: upper extremities are grossly normal. LOWER EXTREMITIES: No pitting edema. NEURO EXAM: Normal sensorium, cranial nerves II-XII grossly intact, normal speech, no gross weakness of arms, no gross weakness of legs. MEDICAL DECISION MAKING: Patient is a 54-year-old female who presents to the ER with a known colonic diverticular abscess and polycystic kidney disease for abdominal pain and low- grade fevers of 100 and not feeling well. She currently taking her Augmentin. IV was established and blood work was obtained. Labs show no significant leukocytosis. Mild anemia 10.9. BMP along with LFTs bilirubin was unremarkable. Troponin was negative. Pro-Christopher at 0.05. UA was clean. CT abdomen pelvis was discussed with radiology and he notes that he believes the larger abscess may have broken down to into several smaller phlegmons but cannot be certain. Ultrasound was obtained at his request. I discussed the case with general surgery and they recommended admission and IV antibiotics and close monitoring for the next 1 to 2 days. Discussed case with hospitalist for further evaluation management treatment. Consults/Care Managements Discussions: Per [facility] Triage Nursing notes reviewed. Limited review of prior medical records performed Vital Signs: reviewed and remarkable for tachy Differential diagnosis: Differential diagnoses includes but is not limited to gastritis, peptic ulcer disease, GERD, gallbladder disease, pancreatitis, small bowel obstruction, appendicitis, diverticulitis, hernia, urinary tract infection, torsion, /ectopic (if female), perforation, trauma, infectious. ER treatment provided: See below Diagnostics interpreted by me include EKG and cardiac monitoring as listed below: -Cardiac Monitoring: An order was placed for continuous cardiac monitoring. The monitor shows a rate of 90 with sinus rhythm. -ECG: Sinus rhythm rate 87 Normal axis No PVCs QTc 440 -Laboratory studies:Interpreted by me as stated above in MDM and shown below. Imaging studies: Xrays: As interpreted by me:none CTs show: CT abdomen pelvis per my preliminary interpretation showed polycystic kidney disease CT Abdo pelvis per radiology as described above Ultrasound pending upon admission. Procedures:none Critical Care: None Past Med/Surg History Problem List (Updated 04/16/25 @ 21:52 by Jero Villa DO) Abdominal pain (Acute) Colonic diverticular abscess (Acute) Hypertension (Chronic) Former smoker (Chronic) Iron deficiency anemia (Chronic) Mitral valve prolapse (Chronic) Polycystic kidney, autosomal dominant (Chronic) Vitamin D deficiency (Chronic) Surgical History H/O LEEP History of tubal ligation History of tonsillectomy and adenoidectomy History of esophagogastroduodenoscopy (EGD) History of colonoscopy Family History Brother Hypertension Kidney disease Father Hypertension Kidney disease Polycystic kidney disease Mother Hypertension Diabetes Uncle Myocardial infarction Sister Polycystic kidney disease Denies family history of Ovarian cancer Prostate cancer Breast cancer Colorectal cancer Social History Smoking Status: Former smoker Tobacco Type: Cigarettes Do You Dip or Chew Tobacco: No; Hx Alcohol Use: No Hx Substance Use: No Preferred Language: Uruguayan Communication Ability: Effective Packer Inspector Required: No Beliefs That Will Affect Care: None marital status: Current Living Situation: Other Current Living Situation Comment: Dependent son current occupational status: employed 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 [place] Feels Safe at Home: Yes Assistive Devices: Glasses Allergies Allergies Allergy/AdvReac Type Severity Reaction Status Date / Time No Known Allergies Allergy Verified 10/09/23 13:45 Home Meds Home Medications Medication Instructions Recorded Confirmed famotidine 20 mg tablet 20 mg PO DAILY 04/09/25 04/16/25 lisinopril 10 mg tablet 10 mg PO QAM 04/09/25 04/16/25 Previous Rx's Medication Instructions Recorded vit B12 50 mcg-iodine 75 mcg-mag 1 cap PO DAILY #90 caps 02/12/19 100 [id number] 193 capsule cholecalciferol (vitamin D3) 25 25 mcg PO DAILY #30 caps 10/09/23 mcg (1,000 unit) capsule amoxicillin 875 mg-potassium 1 tab PO Q12H 14 days #28 tabs 04/11/25 clavulanate 125 mg tablet Results & Data (ED) Vital Signs Vital Signs - 24 hr 04/16/25 14:23 04/16/25 15:14 04/16/25 15:16 Temperature 36.9 C Temperature Source Oral Pulse Rate 91 H Pulse Rate [Apical] Pulse Rhythm [Apical] Pulse Strength [Apical] Respiratory Rate 18 18 Respiratory Effort / Characteristics Respiratory Depth Normal Respiratory Pattern Blood Pressure 122/60 Blood Pressure [Right Arm] 130/79 Blood Pressure Mean 80 Blood Pressure Mean [Right Arm] 96 Pulse Oximetry 98 98 99 Oxygen Delivery Method Room Air Room Air Room Air Sepsis Recent Fever Within 48 Hours Yes Sepsis New/Unexplained Change in Mental Status No Sepsis Action Taken by Nursing No Action Required 04/16/25 15:18 04/16/25 15:45 04/16/25 17:16 Temperature 37.5 C 37.5 C Temperature Source Oral Oral Pulse Rate 72 Pulse Rate [Apical] 69 Pulse Rhythm [Apical] Regular Pulse Strength [Apical] Normal Respiratory Rate 18 17 Respiratory Effort / Characteristics Non-Labored Spontaneous Respiratory Depth Normal Respiratory Pattern Regular Blood Pressure Blood Pressure [Right Arm] 130/79 139/79 Blood Pressure Mean Blood Pressure Mean [Right Arm] 96 99 Pulse Oximetry 99 99 Oxygen Delivery Method Room Air Room Air Sepsis Recent Fever Within 48 Hours Sepsis New/Unexplained Change in Mental Status Sepsis Action Taken by Nursing 04/16/25 18:11 04/16/25 19:36 Temperature Temperature Source Pulse Rate 61 Pulse Rate [Apical] 69 Pulse Rhythm [Apical] Pulse Strength [Apical] Respiratory Rate 18 Respiratory Effort / Characteristics Non-Labored Spontaneous Respiratory Depth Normal Respiratory Pattern Regular Blood Pressure Blood Pressure [Right Arm] 136/64 Blood Pressure Mean Blood Pressure Mean [Right Arm] 88 Pulse Oximetry 99 Oxygen Delivery Method Room Air Sepsis Recent Fever Within 48 Hours Sepsis New/Unexplained Change in Mental Status Sepsis Action Taken by Nursing Laboratory Data 04/16/25 15:16 04/16/25 15:16 Lab Results 04/16/25 04/16/25 Range/Units 15:16 15:24 WBC 10.27 (4.8-10.8) K/ul RBC 3.92 L (4.20-5.40) M/uL Hgb 10.9 L (12.0-16.0) g/dl POC Hgb 12.2 (12.0-16.0) g/dl Hct 33.2 L (37.0-47.0) % POC Hct 36 L (37-47) % MCV 84.7 (80.0-100.0) fL MCH 27.8 (25.0-34.0) pg MCHC 32.8 (32.0-36.0) g/dL RDW Std Deviation 41.4 (36.4-46.3) fL RDW Coeff of Yuliana 13.3 (11.5-14.5) % Plt Count 307 (130-400) K/uL MPV 10.2 (9.4-12.4) fL Immature Gran % (Auto) 0.6 % Neut % (Auto) 79.1 % Lymph % (Auto) 13.1 % Garrett % (Auto) 6.9 % Eos % (Auto) 0.0 % Baso % (Auto) 0.3 % Neut # (Auto) 8.12 H (1.40-6.50) K/uL Lymph # (Auto) 1.35 (1.20-3.40) K/uL Garrett # (Auto) 0.71 H (0.11-0.59) K/uL Eos # (Auto) 0.00 (0.00-0.50) K/uL Baso # (Auto) 0.03 (0.00-0.20) K/uL Immature Gran # (Auto) 0.06 (0.01-0.20) K/uL POC Sodium 138 (135-144) mmol/L Sodium 138 (136-145) mmol/L POC Potassium 3.9 (3.3-5.0) mmol/L Potassium 4.0 (3.5-5.1) mmol/L POC Chloride 100 L (101-112) mmol/L Chloride 101 (98-107) mmol/L Carbon Dioxide 27 (21-32) mmol/L POC Total CO2 25 (24-31) mmol/L Anion Gap 10 (3-11) POC Anion Gap 18.0 (16-25) mmol/L POC BUN 15 (7-18) mg/dl BUN 16 (6-23) mg/dl Creatinine 1.04 (0.6-1.2) mg/dl POC Creatinine 1.1 (0.6-1.3) mg/dl Est Cr Clr Drug Dosing 57.9 ml/min eGFR 63.87 BUN/Creatinine Ratio 15.4 (10-20) Glucose 100 H (70-99(Fasting)) mg/dl POC Glucose (other) 97 (70-99) mg/dl Lactate 0.8 (0.4-2.0) mmol/L Calcium 9.6 (8.6-10.3) mg/dl POC Ioniz Calcium Susan 1.15 (1.12-1.32) mmol/l Magnesium 1.9 (1.7-2.4) mg/dl Total Bilirubin 0.5 (0.2-1.0) mg/dl Direct Bilirubin 0.1 (0-0.2) mg/dl AST 14 (13-39) U/L ALT 12 (7-52) U/L Alkaline Phosphatase 68 (34-104) U/L Troponin I High Sens 5.5 (0-14) pg/ml Total Protein 7.3 (6.0-8.3) gm/dl Albumin 3.9 (3.4-5.0) gm/dl Procalcitonin 0.05 (0-0.5) ng/ml Urine Color Yellow Urine Appearance Clear (Clear) Urine pH 7.0 (4.5-7.5) Ur Specific Elmo 1.005 (1.000-1.030) Urine Protein Negative (Negative) Urine Glucose (UA) Negative (Negative) Urine Ketones Negative (Negative) Urine Blood Negative (Negative) Urine Nitrite Negative (Negative) Urine Bilirubin Negative (Negative) Urine Urobilinogen Negative (Negative) Ur Leukocyte Esterase Negative (Negative) Urine Comment Administered Medications Discontinued Medications Diphenhydramine HCl (Diphenhydramine 50 Mg/Ml Vial) 50 mg IV NOW STA Stop: 04/16/25 14:47 Last Admin: 04/16/25 15:20 Dose: 50 mg Documented By: REYNALDO Sodium Chloride (Nss) 1,000 mls @ 999 mls/hr IV .Q1H1M ONE Stop: 04/16/25 15:39 Last Infusion: 04/16/25 17:18 Dose: Infused Documented By: Admin: 04/16/25 15:20 Dose: 999 mls/hr Documented By: REYNALDO Sodium Chloride (Nss) 1,000 mls @ 999 mls/hr IV .Q1H1M ONE Stop: 04/16/25 15:47 Last Infusion: 04/16/25 17:18 Dose: Infused Documented By: Admin: 04/16/25 16:37 Dose: 999 mls/hr Documented By: REYNALDO Piperacillin Sod/Tazobactam Sod (Zosyn) 4.5 gm in 100 mls @ 200 mls/hr IV NOW ONE; Protocol Stop: 04/16/25 20:31 Last Admin: 04/16/25 20:46 Dose: 200 mls/hr Documented By: macario Ioversol (Optiray 320 100ml) 93 ml IV ONCE ONE Stop: 04/16/25 16:17 Last Admin: 04/16/25 16:16 Dose: 93 ml Documented By: MARC Methylprednisolone (Methylprednisolone 125 Mg/2 Ml Vial) 125 mg IV NOW STA Stop: 04/16/25 14:47 Last Admin: 04/16/25 15:21 Dose: 125 mg Documented By: REYANLDO Imaging Data Radiologist's Impression: Chest X-Ray 04/16/25 14:39 SINGLE VIEW CHEST CLINICAL HISTORY: Sepsis FINDINGS: 2 AP, portable, upright chest radiographs are compared to study dated 06/06/2023. The cardiomediastinal silhouette is unremarkable. There is mild chronic elevation of the right hemidiaphragm. The lungs and pleural spaces are clear. No pneumothorax is seen. The bony thorax is grossly intact. IMPRESSION: No active disease in the chest. ACT 112: Negative or not required by law. Electronically signed by: Pawan Goode M.D. 04/16/2025 3:17 PM Abdomen/Pelvis CT 04/16/25 14:46 EXAMINATION: CT of the abdomen and pelvis performed after the administration of IV contrast. TECHNIQUE: Helical CT images from the lung bases through the symphysis pubis were obtained with contrast. Coronal and sagittal reformatted images were generated at a workstation for further assessment. Dose reduction techniques were achieved by using automatic exposure control and/or adjustment of mA and/or kV according to patient size and/or use of iterative reconstruction technique. HISTORY: Lower abdominal pain. Known abscess. Fevers. COMPARISON: April 09, 2025. Study report not available at the time of dictation. FINDINGS: Sleeve Separator film demonstrates no acute abnormality. Calcifications projecting over the left abdomen again noted. Lung windows demonstrate mild subsegmental atelectasis. Soft tissue windows demonstrate at least moderate replacement of the liver parenchyma with multiple geographic hypodensities most consistent with cysts. Aids are difficult to reconcile with prior study but do not appear to be significantly changed. Additional enlarged bilateral kidneys with near complete replacement of the renal parenchyma secondary to what appear to be multiple cysts. Again reconciliation is difficult. Difficulty appreciating significant interval change. Calcifications involving left renal cyst do not appear to be significantly changed. Presacral edematous changes are noted. These are similar to prior study. There appears to be short segmental wall thickening of the rectosigmoid junction. No discrete mass. This does not appear to be significantly changed. Appendix is not identified with certainty. No secondary findings to indicate appendiceal disease. Prominent nonspecific fluid distended loops of small bowel. No heidy obstruction. Heterogeneous soft tissue at the level of the right adnexa. Right ovary is difficult to distinctly identify. No discrete drainable fluid collection. Etiology is uncertain. Hydrosalpinx or tubo-ovarian abscess cannot entirely be excluded. Remaining solid and hollow organs of the abdomen pelvis are within normal limits. Small amount of free fluid dependent pelvis. No free air. Bone windows demonstrate degenerative changes lumbosacral spine. No appreciated acute osseous process. IMPRESSION: 1. Cystic changes of the liver and bilateral kidneys likely representing polycystic kidney disease. Difficulty appreciating significant interval change. 2. Difficulty appreciating well-defined right adnexa/ovary. Soft tissue at this level may represent hydrosalpinx. Tubo-ovarian abscess at this level not entirely excluded. Pelvic ultrasound would be helpful for further characterization. Correlate with clinical data. 3. Appendix not identified. No discrete acute appendiceal disease. Correlate with clinical data. 4. Prominent fluid-filled small bowel without heidy obstruction. Mild ileus is not excluded. Enteritis cannot be excluded. 5. Short segmental wall thickening of the rectosigmoid junction. No discrete mass or obstruction. Correlate with clinical data. Direct visualization may be of benefit. Electronically signed by Vikash Granado 04-16-2025 4:47 PM Pelvis Ultrasound 04/16/25 17:03 Exam: Pelvic ultrasound. History: History of right pelvic abscess. Comparison: Correlation same-day CT and prior April 09, 2025 CT. Findings: Uterus measures 7.4 x 2.8 4.8 cm. Small hyperechoic acoustic impeding focus consistent with calcification at the level of the myometrium corresponding to density on prior CT. Myometrial echotexture is otherwise normal. Endometrial stripe measures 3 mm in thickness. This is within normal limits for patient's age. At the level of the right adnexa there is a small hyperechogenic focus demonstrated acoustic impedance consistent with calcification. This is likely represents a phlebolith and corresponds to prior CT. Soft tissue focus within the right adnexa measuring 3.5 x 2.2 x 2.9 cm likely representing the right ovary is noted. This demonstrates normal echotexture and flow. No definitive tubular fluid collection to indicate hydrosalpinx. There is a questionable thick-walled central fluid focus within the right adnexa. No discrete hyperemic wall. No definitive drainable fluid collection is identified. This may represent a thickened segment of large or small bowel. Associated phlegmonous process is not excluded. Left ovary measures 2.4 x 3.9 x 2.3 cm. Normal echotexture and flow noted. Trace free fluid adjacent to the right ovary. Impression: 1. Normal-appearing uterus and what is believed to be bilateral ovaries. 2. Thick-walled likely central small fluid pocket process within the right adnexa which may represent thickened walled large or small bowel. Early abscess cannot entirely be excluded. No definitive drainable fluid collection is identified. Recommend surgical consult and follow-up CT if clinical suspicion or symptoms persist despite therapy. Electronically signed by Vikash Granado 04-16-2025 8:45 PM Discharge Plan Visit Data Chief Complaint: GI Assessment Stated Complaint: DIVERTICULITIS ED Provider: Jero Villa Discharge Problem: Abdominal pain, Colonic diverticular abscess, Polycystic kidney, autosomal dominant Condition: Fair Forms Stand Alone Forms: [facility] [employer] Prescriptions Prescriptions: No Action [id number] 50 mcg-75 mcg -100 mg capsule 1 cap PO DAILY Qty: 90 0RF cholecalciferol (vitamin D3) 25 mcg (1,000 unit) capsule 25 mcg PO DAILY Qty: 30 0RF famotidine 20 mg Tablet 20 mg PO DAILY lisinopril 10 mg tablet 10 mg PO QAM amoxicillin-pot clavulanate 875-125 mg tablet 1 tab PO Q12H 14 Days Qty: 28 0RF Referrals Referrals: PCP,NO [Primary Care Provider] - Discharge Problem: Abdominal pain Qualifiers: Abdominal location: unspecified location Qualified Code(s): R10.9 - Unspecified abdominal pain
--- NOTE | 2025-04-16 15:18 | XRay Report ---
SINGLE VIEW CHEST CLINICAL HISTORY: Sepsis FINDINGS: 2 AP, portable, upright chest radiographs are compared to study dated 06/06/2023. The cardi omediastinal silhouette is unremarkable. There is mild chronic elevation of the right hemidiaphragm. The lungs and pleural spaces are clear. No pneumothorax is seen. The bony thorax is grossly intact. IMPRESSION: No active disease in the chest. ACT 112: Negative or not required by law. Electronically signed by: Pawan Goode M.D. 04/16/2025 3:17 PM
[2025-04-16] MEDS: diphenhydrAMINE 50 MG/ML VIAL IV STA (15:20)
[2025-04-16] MEDS: SODIUM CHLORIDE 0.9% 1,000 ML IV ONE ×2 (15:20→16:37)
[2025-04-16 15:39] LABS: Hematocrit (blood only) 33.2 % (37.0-47.0); Hemoglobin 10.9 g/dl (12.0-16.0); Immature Granulocytes # (auto) 0.06 K/uL (0.01-0.20); Immature Granulocytes % (auto) 0.6 %; Mean Corpuscular Hemoglobin 27.8 pg (25.0-34.0); Mean Corpuscular Volume 84.7 fL (80.0-100.0); Platelet Count 307 K/uL (130-400); RDW Standard Deviation 41.4 fL (36.4-46.3); Red Blood Count 3.92 M/uL (4.20-5.40); White Blood Count 10.27 K/ul (4.8-10.8)
[2025-04-16 15:44] LABS: Appearance Urine Clear (Clear); Glucose Urine UA Negative (Negative)
[2025-04-16 16:01] LABS: Alanine Aminotransferase 12.0 U/L (7-52); Albumin Level 3.9 gm/dl (3.4-5.0); Alkaline Phosphatase 68.0 U/L (34-104); Anion Gap 10.0 (3-11); Bilirubin,Total 0.5 mg/dl (0.2-1.0); Blood Urea Nitrogen 16.0 mg/dl (6-23); Calcium 9.6 mg/dl (8.6-10.3); Carbon Dioxide 27.0 mmol/L (21-32); Chloride 101.0 mmol/L (98-107); Creatinine Clr Calc Pharmacy 57.9 ml/min; Glucose 100.0 mg/dl (70-99(Fasting)); Magnesium 1.9 mg/dl (1.7-2.4); Potassium 4.0 mmol/L (3.5-5.1); Sodium 138.0 mmol/L (136-145); Total Protein 7.3 gm/dl (6.0-8.3)
[2025-04-16] MEDS: OPTIRAY 320 100ml IV ONE (16:16)
--- NOTE | 2025-04-16 16:47 | CT Scan Report ---
EXAMINATION: CT of the abdomen and pelvis performed after the administration of IV contrast. TECHNIQUE: Helical CT images from the lung bases through the symphysis pubis were obtained with contrast. Coronal and sagittal reformatted images were generated at a workstation for further assessment. Dose reduction techniques were achieved by using automatic exposure control and/or adjustment of mA and/or kV according to patient size and/or use of iterative reconstruction technique. HISTORY: Lower abdominal pain. Known abscess. Fevers. COMPARISON: April 09, 2025. Study report not available at the time of dictation. FINDINGS: Spool Cleaner film demonstrates no acute abnormality. Calcifications projecting over the left abdomen again noted. Lung windows demonstrate mild subsegmental atelectasis. Soft tissue windows demonstrate at least moderate replacement of the liver parenchyma with multiple geographic hypodensities most consistent with cysts. Aids are difficult to reconcile with prior study but do not appear to be significantly changed. Additional enlarged bilateral kidneys with near complete replacement of the renal parenchyma secondary to what appear to be multiple cysts. Again reconciliation is difficult. Difficulty appreciating significant interval change. Calcifications involving left renal cyst do not appear to be significantly changed. Presacral edematous changes are noted. These are similar to prior study. There appears to be short segmental wall thickening of the rectosigmoid junction. No discrete mass. This does not appear to be significantly changed. Appendix is not identified with certainty. No secondary findings to indicate appendiceal disease. Prominent nonspecific fluid distended loops of small bowel. No heidy obstruction. Heterogeneous soft tissue at the level of the right adnexa. Right ovary is difficult to distinctly identify. No discrete drainable fluid collection. Etiology is uncertain. Hydrosalpinx or tubo-ovarian abscess cannot entirely be excluded. Remaining solid and hollow organs of the abdomen pelvis are within normal limits. Small amount of free fluid dependent pelvis. No free air. Bone windows demonstrate degenerative changes lumbosacral spine. No appreciated acute osseous process. IMPRESSION: 1. Cystic changes of the liver and bilateral kidneys likely representing polycystic kidney disease. Difficulty appreciating significant interval change. 2. Difficulty appreciating well-defined right adnexa/ovary. Soft tissue at this level may represent hydrosalpinx. Tubo-ovarian abscess at this level not entirely excluded. Pelvic ultrasound would be helpful for further characterization. Correlate with clinical data. 3. Appendix not identified. No discrete acute appendiceal disease. Correlate with clinical data. 4. Prominent fluid-filled small bowel without heidy obstruction. Mild ileus is not excluded. Enteritis cannot be excluded. 5. Short segmental wall thickening of the rectosigmoid junction. No discrete mass or obstruction. Correlate with clinical data. Direct visualization may be of benefit. Electronically signed by Vikash Granado 04-16-2025 4:47 PM
--- NOTE | 2025-04-16 19:05 | Electrocardiogram Report ---
Test Reason : Blood Pressure : */* mmHG Vent. Rate : 87 BPM Atrial Rate : 87 BPM P-R Int : 128 ms QRS Dur : 92 ms QT Int : 366 ms P-R-T Axes : 36 -6 -17 degrees QTcB Int : 440 ms Normal sinus rhythm Nonspecific T wave abnormality Abnormal ECG When compared with ECG of 06-Jun-2023 14:18, No significant change was found Confirmed by River Bartlett ([id number]) on 04/16/2025 7:04:56 PM Referred By: REFERRED SELF Confirmed By: River Bartlett
--- NOTE | 2025-04-16 20:09 | Surgery Consultation ---
Date of Consultation April 16, 2025 Assessment & Plan (1) Abdominal pain: The patient is a 54-year-old female with PMH significant for polycystic kidney disease and HTN who presents to the emergency department with complaints of abdominal pain and subjective fevers over the last few days. The patient was rec ently hospitalized at our facility from 04/09-04/11 for findings of perforated diverticulitis with 2.5x2.5cm abscess and during that time she was treated conservatively with IV antibiotics and upon discharge she was sent home with 14 days of oral Augmentin. Due to the patient continuing to not feel well she came back to the emergency department for further evaluation. Labs and imaging reviewed - labs WNL and CT imaging was concerning again for intraabdominal abscess with question of possible tubo-ovarian abscess. However, given the patient's recent hospitalization with diverticulitis and abscess it seems more likely fluid collection is related to this. From a surgical perspective, patient has no signs of acute abdomen that would warrant emergent surgical intervention. Recommend the patient be treated conservatively for now with bowel rest and IV antibiotics. Continue to trend WBC and temps. Could also consider possible SPECIAL SERVICES AGENT consult to weigh in on possible tubo-ovarian abscess as well. Medical management per primary team, surgery will continue to closely follow. (2) Colonic diverticular abscess: History of Present Illness Reason for Consultation: Abdominal pain History of Present Illness The patient is a 54-year-old female with PMH significant for polycystic kidney disease and HTN who presents to the emergency department with complaints of abdominal pain and subjective fevers. To note, the patient was recently hospitalized at our facility from 04/09-04/11 for findings of perforated diverticulitis with 2.5x2.5cm abscess and during that time she was treated conservatively with IV antibiotics. Upon discharge she was sent home with 14 days of oral Augmentin to continue. The patient states for a few days after discharge she was feeling well and back to her normal self. However, yesterday she started with discomfort/pressure in her mid abdomen, low-grade fevers, and overall feeling tired that had progressed into today. The patient did call the outpatient general surgery office and she was instructed to come back to the emergency department for evaluation. The patient underwent repeat CT imaging this afternoon in the emergency department with findings again concerning for intraabdominal abscess. The patient was seen and evaluated in the emergency department this evening. She is resting comfortably in bed, VSS, and is nontoxic appearing. She states her last bowel movement was yesterday and she did have some cramping during that time but it did subside. The patient states that she is still having some mild discomfort in her mid abdomen however she is starting to feel better than time of arrival. Allergies Allergy/AdvReac Type Severity Reaction Status Date / Time No Known Allergies Allergy Verified 10/09/23 13:45 Home Medications Medication Instructions Recorded Confirmed Type vit B12 50 mcg-iodine 75 mcg-mag 1 cap PO DAILY #90 caps 02/12/19 04/16/25 Rx 100 [id number] 193 capsule cholecalciferol (vitamin D3) 25 25 mcg PO DAILY #30 caps 10/09/23 04/16/25 Rx mcg (1,000 unit) capsule famotidine 20 mg tablet 20 mg PO DAILY 04/09/25 04/16/25 History lisinopril 10 mg tablet 10 mg PO QAM 04/09/25 04/16/25 History amoxicillin 875 mg-potassium 1 tab PO Q12H 14 days #28 tabs 04/11/25 04/16/25 Rx clavulanate 125 mg tablet Patient History Surgical History H/O LEEP History of tubal ligation History of tonsillectomy and adenoidectomy History of esophagogastroduodenoscopy (EGD) History of colonoscopy Family History Brother Hypertension Kidney disease Father Hypertension Kidney disease Polycystic kidney disease Mother Hypertension Diabetes Uncle Myocardial infarction Sister Polycystic kidney disease Denies family history of Ovarian cancer Prostate cancer Breast cancer Colorectal cancer Social History Smoking Status: Former smoker Tobacco Type: Cigarettes Do You Dip or Chew Tobacco: No; Hx Alcohol Use: No Hx Substance Use: No Preferred Language: Iraqi Communication Ability: Effective Lawyer Probate Required: No Beliefs That Will Affect Care: None marital status: Current Living Situation: Other Current Living Situation Comment: Dependent son current occupational status: employed 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 No rebound, guarding or signs of peritonitis Skin: no rashes, warm and dry Results & Data Vital Signs (Past 12 Hours) Vital Signs Temp Pulse Pulse Resp BP BP Pulse Ox 04/16/25 19:36 61 04/16/25 18:11 69 18 136/64 99 04/16/25 17:16 37.5 C 69 17 139/79 99 04/16/25 15:45 72 04/16/25 15:18 37.5 C 18 130/79 99 04/16/25 15:16 18 130/79 99 04/16/25 15:14 98 04/16/25 14:23 36.9 C 91 H 18 122/60 98 O2 Del Method 04/16/25 19:36 04/16/25 18:11 Room Air 04/16/25 17:16 Room Air 04/16/25 15:45 04/16/25 15:18 Room Air 04/16/25 15:16 Room Air 04/16/25 15:14 Room Air 04/16/25 14:23 Room Air Diagnostic Findings EXAMINATION: CT of the abdomen and pelvis performed after the administration of IV contrast. TECHNIQUE: Helical CT images from the lung bases through the symphysis pubis were obtained with contrast. Coronal and sagittal reformatted images were generated at a workstation for further assessment. Dose reduction techniques were achieved by using automatic exposure control and/or adjustment of mA and/or kV according to patient size and/or use of iterative reconstruction technique. HISTORY: Lower abdominal pain. Known abscess. Fevers. COMPARISON: April 09, 2025. Study report not available at the time of dictation. FINDINGS: Proof Operator film demonstrates no acute abnormality. Calcifications projecting over the left abdomen again noted. Lung windows demonstrate mild subsegmental atelectasis. Soft tissue windows demonstrate at least moderate replacement of the liver parenchyma with multiple geographic hypodensities most consistent with cysts. Aids are difficult to reconcile with prior study but do not appear to be significantly changed. Additional enlarged bilateral kidneys with near complete replacement of the renal parenchyma secondary to what appear to be multiple cysts. Again reconciliation is difficult. Difficulty appreciating significant interval change. Calcifications involving left renal cyst do not appear to be significantly changed. Presacral edematous changes are noted. These are similar to prior study. There appears to be short segmental wall thickening of the rectosigmoid junction. No discrete mass. This does not appear to be significantly changed. Appendix is not identified with certainty. No secondary findings to indicate appendiceal disease. Prominent nonspecific fluid distended loops of small bowel. No heidy obstruction. Heterogeneous soft tissue at the level of the right adnexa. Right ovary is difficult to distinctly identify. No discrete drainable fluid collection. Etiology is uncertain. Hydrosalpinx or tubo-ovarian abscess cannot entirely be excluded. Remaining solid and hollow organs of the abdomen pelvis are within normal limits. Small amount of free fluid dependent pelvis. No free air. Bone windows demonstrate degenerative changes lumbosacral spine. No appreciated acute osseous process. IMPRESSION: 1. Cystic changes of the liver and bilateral kidneys likely representing polycystic kidney disease. Difficulty appreciating significant interval change. 2. Difficulty appreciating well-defined right adnexa/ovary. Soft tissue at this level may represent hydrosalpinx. Tubo-ovarian abscess at this level not entirely excluded. Pelvic ultrasound would be helpful for further characterization. Correlate with clinical data. 3. Appendix not identified. No discrete acute appendiceal disease. Correlate with clinical data. 4. Prominent fluid-filled small bowel without heidy obstruction. Mild ileus is not excluded. Enteritis cannot be excluded. 5. Short segmental wall thickening of the rectosigmoid junction. No discrete mass or obstruction. Correlate with clinical data. Direct visualization may be of benefit. PG Care Time/CCT Total # of Minutes Spent Total Time Spent with Patient: Total time spent is greater than 50% in coordination of care (as documented) at patient's floor/unit and/or counseling patient: Coding [place] [address] Office/OBS Consult Lvl 1 Patient Type Established History Problem Focused Exam Problem Focused Medical Decision Making Straight Forward Diagnoses Abdominal pain R10.9 Abdominal location: unspecified location Colonic diverticular abscess K57.20 (1) Abdominal pain Abdominal location: unspecified location Qualified Code(s): R10.9 - Unspecified abdominal pain
[2025-04-16] MEDS: PIPERACILLIN/TAZOBACTAM 4.5 GM/100 ML BAG IV ONE (20:46)
--- NOTE | 2025-04-16 20:46 | Ultrasound Report ---
Exam: Pelvic ultrasound. History: History of right pelvic abscess. Comparison: Correlation same-day CT and prior April 09, 2025 CT. Findings: Uterus measures 7.4 x 2.8 4.8 cm. Small hyperechoic acoustic impeding focus consistent with calcification at the level of the myometrium corresponding to density on prior CT. Myometrial echotexture is otherwise normal. Endometrial stripe measures 3 mm in thickness. This is within normal limits for patient's age. At the level of the right adnexa there is a small hyperechogenic focus demonstrated acoustic impedance consistent with calcification. This is likely represents a phlebolith and corresponds to prior CT. Soft tissue focus within the right adnexa measuring 3.5 x 2.2 x 2.9 cm likely representing the right ovary is noted. This demonstrates normal echotexture and flow. No definitive tubular fluid collection to indicate hydrosalpinx. There is a questionable thick-walled central fluid focus within the right adnexa. No discrete hyperemic wall. No definitive drainable fluid collection is identified. This may represent a thickened segment of large or small bowel. Associated phlegmonous process is not excluded. Left ovary measures 2.4 x 3.9 x 2.3 cm. Normal echotexture and flow noted. Trace free fluid adjacent to the right ovary. Impression: 1. Normal-appearing uterus and what is believed to be bilateral ovaries. 2. Thick-walled likely central small fluid pocket process within the right adnexa which may represent thickened walled large or small bowel. Early abscess cannot entirely be excluded. No definitive drainable fluid collection is identified. Recommend surgical consult and follow-up CT if clinical suspicion or symptoms persist despite therapy. Electronically signed by Vikash Granado 04-16-2025 8:45 PM
--- NOTE | 2025-04-16 22:22 | History & Physical Report ---
Date of Service April 16, 2025 Assessment & Plan (1) Colonic diverticular abscess: (2) Hypertension: (3) Polycystic kidney, autosomal dominant: Plan Patient is a 54 y/o F w/ PMHx of ADPCKD, HTN, and iron deficiency anemia who is admitted for management of sigmoid diverticulitis with abscess formation. Diverticulitis w/ abscess - Recently admitted to [facility] from 04/09-04/11 and discharged with Augmentin which she was taking, but in the last 1-2 days had not been strictly following low residual diet - Admit to Med/Surg - Manage with Zosyn - General Surgery consulted. Will appreciate their input. - NPO for now HTN - Continue home lisinopril Autosomal Dominant Polycystic Kidney Disease - Had been following with Nephrology - Monitor am labs Iron deficiency anemia - Hgb at time of admission ~10 whish is around patient's baseline - Monitor am labs Dispo: Admit to Med/Surg VTE ppx: Low risk; ambulation Code Status: FULL History of Present Illness Chief Complaint: Abdominal pain Primary Care Provider: NO PCP Patient is a 54 y/o F w/ PMHx of ADPCKD, HTN, and iron deficiency anemia who comes to ED due to feeling of abdominal fullness w/ associated low grade fever (Tmax 100 F). Of note, patient was recently admitted from 04/09-04/11 for management of acute sigmoid diverticulitis with perforation, at which time she was treated with IV abx, then discharged with 14-day course of Augmentin. Patiet had been taking abx as was advised and initially noted improvement, but then states that she began to increase her oral intake and added other foods such as carrots, after which she began to feel unwell and developed abdominal fullness (no pain) and the low grade fever. Dies not have associated chills, weakness, N/V/D, chest pain, SOB, or other associated sxs. ED provider spoke with General surgery team who had recc patient be admitted for bowel rest w/ IV abx and continued monitoring. ED Course: NSS 1L bolus x2, Zosyn x1 Labs/Imaging: CBC w/o leukocytosis but noting neutrophilia, hgb of 10.9, plt of 307. CMP w/o significant electrolyte abnormalities, renal markers wnl, and LFTs unremarkable. Magnesium of 1.9. Procal of 0.05. CXR unremarkable. CTAP showing polycystic kidneys, possible (R) hydrosalpinx (but subsequent US noting it is more likely from bowel and may have forming abscess), and short segmental wall thickening of rectosigmoid wall. Medical History: [Reviewed] Medications: [Reviewed] Surgical History: [Reviewed] Family history: [Reviewed] Allergies: [Reviewed] Social History: [Reviewed] Code Status: FULL Allergies Allergy/AdvReac Type Severity Reaction Status Date / Time No Known Allergies Allergy Verified 10/09/23 13:45 Home Medications Medication Instructions Recorded Confirmed Type vit B12 50 mcg-iodine 75 mcg-mag 1 cap PO DAILY #90 caps 02/12/19 04/16/25 Rx 100 [id number] 193 capsule cholecalciferol (vitamin D3) 25 25 mcg PO DAILY #30 caps 10/09/23 04/16/25 Rx mcg (1,000 unit) capsule famotidine 20 mg tablet 20 mg PO DAILY 04/09/25 04/16/25 History lisinopril 10 mg tablet 10 mg PO QAM 04/09/25 04/16/25 History amoxicillin 875 mg-potassium 1 tab PO Q12H 14 days #28 tabs 04/11/25 04/16/25 Rx clavulanate 125 mg tablet Past Med/Surg History Problem List (Updated 04/17/25 @ 12:19 by Oliver Shah MD) Acute pelvic pain, female Acute abdominal pain Abdominal pain (Acute) Colonic diverticular abscess (Acute) Hypertension (Chronic) Former smoker (Chronic) Iron deficiency anemia (Chronic) Mitral valve prolapse (Chronic) Polycystic kidney, autosomal dominant (Chronic) Vitamin D deficiency (Chronic) Surgical History H/O LEEP History of tubal ligation History of tonsillectomy and adenoidectomy History of esophagogastroduodenoscopy (EGD) History of colonoscopy Family History Brother Hypertension Kidney disease Father Hypertension Kidney disease Polycystic kidney disease Mother Hypertension Diabetes Uncle Myocardial infarction Sister Polycystic kidney disease Denies family history of Ovarian cancer Prostate cancer Breast cancer Colorectal cancer Social History Smoking Status: Former smoker Tobacco Type: Cigarettes Do You Dip or Chew Tobacco: No; Hx Alcohol Use: No Hx Substance Use: No Preferred Language: Northern Irish Communication Ability: Effective Manufacturing Engineer Chief Required: No Beliefs That Will Affect Care: None marital status: Current Living Situation: Other Current Living Situation Comment: Has dependent son current occupational status: employed 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 [place] Other Information That Helps Us Care for You: No Feels Safe at Home: Yes Safety Concerns: Feels Safe At This Time Assistive Devices: Glasses Review of Systems Review of Systems: As per HPI Physical Exam Physical Exam: GENERAL: AAOx3, afebrile, non toxic, NAD HEAD: AT, NC EYES: EOM intact, AJ CHEST: symmetric chest expansions with respirations CARDIO: RRR, no r/m/g PULMONARY: CTA b/l, normal respiratory effort, no respiratory distress GI: soft, ND, NT, no guarding or rebound tenderness EXTREMITIES: no swelling or calf tenderness b/l Results & Data Results & Data Vital Signs (Past 12 Hours) Vital Signs Temp Pulse Pulse Resp BP BP Pulse Ox 04/16/25 19:36 61 04/16/25 18:11 69 18 136/64 99 04/16/25 17:16 37.5 C 69 17 139/79 99 04/16/25 15:45 72 04/16/25 15:18 37.5 C 18 130/79 99 04/16/25 15:16 18 130/79 99 04/16/25 15:14 98 04/16/25 14:23 36.9 C 91 H 18 122/60 98 O2 Del Method 04/16/25 19:36 04/16/25 18:11 Room Air 04/16/25 17:16 Room Air 04/16/25 15:45 04/16/25 15:18 Room Air 04/16/25 15:16 Room Air 04/16/25 15:14 Room Air 04/16/25 14:23 Room Air Supervising Physician Co-Signing Physician Notes Attending addendum: I have physically seen this patient, have supervised the medical residents activities, and agree with the H&P unless as otherwise noted. Assessment and Plan: The patient is a 54-year-old female with past medical history including ADP CKD, hypertension, and iron deficiency anemia. She was most recently admitted from 04/09-04/11 for sigmoid diverticulitis with abscess formation. She was discharged on Augmentin twice daily, however, she presents to the emergency department with recurrence and worsening of abdominal pain and nausea. Diverticulitis with abscess- Initial admission as noted above Admit to MedSurg Zosyn 4.5 g IV every 8 hours IV fluids as noted Consult general surgery NPO Hypertension- Hold lisinopril Autosomal dominant polycystic kidney disease labs at baseline Follow serially Remaining orders and notations as noted Resident Activity Tracking Resident Involvement: Resident Care Provided Care Provided: Adult Hospital Medicine
[2025-04-17] MEDS ORDERED: ONDANSETRON INJ 2 MG/ML 2 ML VIAL IV PRN (00:10)
[2025-04-17] MEDS ORDERED: ACETAMINOPHEN 325 MG TAB PO PRN (00:10)
[2025-04-17] MEDS: SODIUM CHLORIDE 0.9% 500 ML IV SCH (02:15)
[2025-04-17] MEDS: PIPERACILLIN/TAZOBACTAM 4.5 GM/100 ML BAG IV SCH (02:15)
[2025-04-17 07:26] VITALS: RESP 16
[2025-04-17 07:27] LABS: Hematocrit (blood only) 33.3 % (37.0-47.0); Hemoglobin 10.7 g/dl (12.0-16.0); Immature Granulocytes # (auto) 0.07 K/uL (0.01-0.20); Immature Granulocytes % (auto) 0.8 %; Mean Corpuscular Hemoglobin 27.6 pg (25.0-34.0); Mean Corpuscular Volume 85.8 fL (80.0-100.0); Platelet Count 286 K/uL (130-400); RDW Standard Deviation 42.1 fL (36.4-46.3); Red Blood Count 3.88 M/uL (4.20-5.40); White Blood Count 8.58 K/ul (4.8-10.8)
[2025-04-17 07:54] LABS: Anion Gap 9.0 (3-11); Blood Urea Nitrogen 19.0 mg/dl (6-23); Calcium 8.8 mg/dl (8.6-10.3); Carbon Dioxide 24.0 mmol/L (21-32); Chloride 108.0 mmol/L (98-107); Creatinine Clr Calc Pharmacy 66.9 ml/min; Glucose 120.0 mg/dl (70-99(Fasting)); Potassium 4.0 mmol/L (3.5-5.1); Sodium 141.0 mmol/L (136-145)
--- NOTE | 2025-04-17 11:26 | Surgery Progress Note ---
Date of Service April 17, 2025 Assessment & Plan (1) Colonic diverticular abscess: Plan: Her CT scan images and results were personally viewed and interpreted by myself She is much improved, will start clear liquids today No plans for any surgical intervention Continue IV antibiotics for today Admission and Anticipated Discharge Date Admission Date: April 16, 2025 Subjective Patient seen and examined. States her abdominal pain is much improved and nearly gone. Denies any nausea or vomiting. Has not had a bowel movement for couple days but is passing flatus. Afebrile. Review of Systems Constitutional: no fever and no chills Respiratory: no cough and no dyspnea Cardiovascular: no chest pain and no dyspnea on exertion Gastrointestinal: + constipation; no abdominal pain, no na usea, no vomiting and no diarrhea/loose stools Genitourinary: no dysuria and no urinary hesitancy Integumentary: no acne and no lesions Neurologic: no gait abnormality, no localized weakness and no headache(s) Psychiatric: no behavioral changes and no depression Hematologic / Lymphatic: no easy bleeding and no easy bruising Physical Exam Constitutional: WD/WN, vitals as above Eyes: PERRL, conjunctivae normal, anicteric sclerae Respiratory: normal respiratory effort, lungs clear to auscultation Cardiovascular: RRR, no murmur, no edema Gastrointestinal (Abdomen): normal bowel sounds, soft, nontender, no hepatosplenomegaly Musculoskeletal: no cyanosis or clubbing, extremities motor strength 5/5 Skin: no rashes, warm and dry Psychiatric: A+Ox3, euthymic affect Results & Data Vital Signs (Past 12 Hours) Vital Signs Temp Pulse Pulse Resp BP BP Pulse Ox 04/17/25 09:00 68 126/67 04/17/25 07:23 37.2 C 54 L 16 117/57 L 98 04/17/25 00:10 04/17/25 00:00 36.4 C L 56 L 18 153/75 H 100 04/16/25 23:49 51 L 16 118/70 98 O2 Del Method 04/17/25 09:00 04/17/25 07:23 Room Air 04/17/25 00:10 Room Air 04/17/25 00:00 Room Air 04/16/25 23:49 Room Air PG Care Time/CCT Total # of Minutes Spent Total Time Spent with Patient: Total time spent is greater than 50% in coordination of care (as documented) at patient's floor/unit and/or counseling patient: Coding Level of Care Code 24510 SUB INP/OBS CARE 07/18MIN Diagnoses Colonic diverticular abscess K57.20
[2025-04-17] MEDS: SODIUM CHLORIDE 0.9% 1,000 ML IV SCH (11:49)
--- NOTE | 2025-04-17 12:26 | History & Physical Report ---
Date of Service April 17, 2025 Assessment & Plan (1) Acute abdominal pain: Plan: Lisa is a 54-year-old presents with worsening abdominal pelvic pain following recent treatment for acute diverticulitis and was on outpatient Augmentin. Concerns raised for a tubo-ovarian abscess during current admission. Based on review of findings it is highly unlikely that a tubo-ovarian abscess is present as she was recently diverticulitis and no discrete fluid collections noted. Imaging is noting inflammatory changes in the right adnexa which is noted as likely being bowel related on ultrasound imaging and would fit with the recent diverticulitis diagnosis. Patient has no history of RN BARIATRIC pelvic infections previously and would be low risk for pelvic inflammatory disease/tubo-ovarian abscess. Recommend continuing antibiotic course per primary team and general surgery recommendations. RN BARIATRIC is available if a tubo-ovarian abscess is noted on surgical intervention by general surgery. 45 minutes was spent in review of history, exam and discussion (2) Acute pelvic pain, female: (3) Colonic diverticular abscess: Admission and Anticipated Discharge Date Admission Date: April 16, 2025 History of Present Illness Primary Care Provider: NO PCP Lisa is a 54-year-old admitted for abdominal pain and abdominal pelvic fluid collection in the setting of a recent medically treated acute diverticulitis. Reports worsening of pain starting Saturday of this week and presented to the ED yesterday. Was on Augmentin outpatient for management of diverticulitis. Imaging showed no drainable fluid collection and nonspecific inflammatory changes. There is an area of concern in the right adnexa although ultrasound feels that this is most likely bowel related. Today patient reports that she is feeling markedly improved on current antibiotic course. Has started a clear liquid diet which she is so far tolerating well. Vitals have been normal since admission including no notable fevers. White count within normal range Allergies Allergy/AdvReac Type Severity Reaction Status Date / Time No Known Allergies Allergy Verified 10/09/23 13:45 Home Medications Medication Instructions Recorded Confirmed Type vit B12 50 mcg-iodine 75 mcg-mag 1 cap PO DAILY #90 caps 02/12/19 04/16/25 Rx 100 [id number] 193 capsule cholecalciferol (vitamin D3) 25 25 mcg PO DAILY #30 caps 10/09/23 04/16/25 Rx mcg (1,000 unit) capsule famotidine 20 mg tablet 20 mg PO DAILY 04/09/25 04/16/25 History lisinopril 10 mg tablet 10 mg PO QAM 04/09/25 04/16/25 History amoxicillin 875 mg-potassium 1 tab PO Q12H 14 days #28 tabs 04/11/25 04/16/25 Rx clavulanate 125 mg tablet Patient History Surgical History H/O LEEP History of tubal ligation History of tonsillectomy and adenoidectomy History of esophagogastroduodenoscopy (EGD) History of colonoscopy Family History Brother Hypertension Kidney disease Father Hypertension Kidney disease Polycystic kidney disease Mother Hypertension Diabetes Uncle Myocardial infarction Sister Polycystic kidney disease Denies family history of Ovarian cancer Prostate cancer Breast cancer Colorectal cancer Social History Smoking Status: Former smoker Tobacco Type: Cigarettes Do You Dip or Chew Tobacco: No; Hx Alcohol Use: No Hx Substance Use: No Preferred Language: Sami Communication Ability: Effective Injection Operator Required: No Beliefs That Will Affect Care: None marital status: Current Living Situation: Other Current Living Situation Comment: Has dependent son current occupational status: employed 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 [place] Other Information That Helps Us Care for You: No Feels Safe at Home: Yes Safety Concerns: Feels Safe At This Time Assistive Devices: Glasses Physical Exam Gastrointestinal (Abdomen): Inspection/Auscultation: abdomen normal to inspection; abdomen not distended Percussion/Palpation: abdomen soft; abdomen nontender, no guarding and abdomen not rigid Benign abdominal exam noted Results & Data Vital Signs (Past 12 Hours) Vital Signs Temp Pulse Resp BP Pulse Ox O2 Del Method 04/17/25 09:00 68 126/67 04/17/25 07:23 37.2 C 54 L 16 117/57 L 98 Room Air Coding Level of Care Code 30163 IN/OBS CONSULT LVL 3,45M Diagnoses Acute abdominal pain R10.9 Acute pelvic pain, female R10.20 Colonic diverticular abscess K57.20
--- NOTE | 2025-04-17 17:21 | Hospitalist Progress Note ---
Date of Service April 17, 2025 Assessment & Plan (1) Colonic diverticular abscess: (2) Hypertension: (3) Polycystic kidney, autosomal dominant: Plan Patient is a 54 y/o F w/ PMHx of ADPCKD, HTN, and iron deficiency anemia who was admitted for management of sigmoid diverticulitis with abscess formation. She was recently admitted to [facility] from 04/09-04/11 for the same and was discharged with Augmentin which she was taking, but in the last 1-2 days SECURITY COMPLIANCE SPECIALIST she had not been strictly following low residual diet, which subsequently resulted in abdominal fullness with associated low-grade fever (Tmax 100 F) at home. #Diverticulitis with abscess - CT A/P on admission was concerning for intra-abdominal abscess with question of possible tubo-ovarian abscess. Pelvis ultrasound notes inflammatory changes in the right adnexa - FINANCIAL INVESTIGATOR consulted -tubo-ovarian abscess is highly unlikely, inflammatory changes likely related to diverticulitis. No history of FINANCIAL INVESTIGATOR pelvic infections, low risk for PID/tubo-ovarian abscess - General Surgery consulted - continue conservative management with IV antibiotics - Diet advanced to clear liquid - well-tolerating. Can advance to full liquid diet 10/26 AM if no acute events overnight - Continue Zosyn 4.5 mg IV Q8h #HTN - Continue home lisinopril #Autosomal Dominant Polycystic Kidney Disease - Follows with Nephrology outpatient. Stable without issues at this time #Iron deficiency anemia - Hgb at baseline VTE ppx: Low risk; ambulation Dispo: Anticipate discharge within next 24-48 hours depending symptom improvement and diet advancement Consulted gynecology Admission and Anticipated Discharge Date Admission Date: April 16, 2025 Subjective Patient seen and evaluated at bedside. She reports feeling significantly better than yesterday. She denies any nausea or abdominal pain at this time. She is well tolerating her clear liquid diet. We discussed advancing to full liquids, she prefers to wait until tomorrow's breakfast to advance to full liquid diet. We discussed gynecology's consult agreeing that a tubo-ovarian abscess is highly unlikely and inflammatory changes in the right adnexa are likely related to her diverticulitis. She denies any complaints or concerns at this time. Physical Exam Physical Exam: General: No acute distress, nondiaphoretic, well-developed, well-nourished. Skin: Warm, dry. No rashes or peripheral edema noted Cardiac: Regular rate and rhythm without murmurs gallops or rubs. Pulm: Clear to auscultation bilaterally without wheezes, rales or rhonchi. Normal respiratory effort. 99% on room air. Abdominal: Soft, nontender, nondistended. Bowel sounds present. Neuro: A&O x3. No focal neurological deficits. Results & Data Results & Data Vital Signs (Past 12 Hours) Vital Signs Temp Pulse Resp BP Pulse Ox O2 Del Method 04/17/25 14:18 98.2 F 59 L 16 112/67 99 Room Air 04/17/25 09:00 68 126/67 04/17/25 07:23 99.0 F 54 L 16 117/57 L 98 Room Air Laboratory Results Reviewed CBC with differential Reviewed BMP PG Care Time/CCT Total # of Minutes Spent Total Time Spent with Patient: Total time spent is greater than 50% in coordination of care (as documented) at patient's floor/unit and/or counseling patient: Coding Level of Care Code 19423 SUB INP/OBS CARE 3/50MIN Diagnoses Colonic diverticular abscess K57.20 Hypertension I10 Polycystic kidney, autosomal dominant Q61.2
--- NOTE | 2025-04-17 19:54 | Billing Data ---
Date of Service April 17, 2025 Coding Level of Care Code 45806 INT INP/OBS CARE
[2025-04-18 06:45] LABS: Hematocrit (blood only) 30.1 % (37.0-47.0); Hemoglobin 9.8 g/dl (12.0-16.0); Immature Granulocytes # (auto) 0.02 K/uL (0.01-0.20); Immature Granulocytes % (auto) 0.3 %; Mean Corpuscular Hemoglobin 28.2 pg (25.0-34.0); Mean Corpuscular Volume 86.7 fL (80.0-100.0); Platelet Count 273 K/uL (130-400); RDW Standard Deviation 42.3 fL (36.4-46.3); Red Blood Count 3.47 M/uL (4.20-5.40); White Blood Count 6.31 K/ul (4.8-10.8)
[2025-04-18 07:00] LABS: Anion Gap 5.0 (3-11); Blood Urea Nitrogen 16.0 mg/dl (6-23); Calcium 8.4 mg/dl (8.6-10.3); Carbon Dioxide 28.0 mmol/L (21-32); Chloride 110.0 mmol/L (98-107); Creatinine Clr Calc Pharmacy 58.5 ml/min; Glucose 92.0 mg/dl (70-99(Fasting)); Potassium 3.7 mmol/L (3.5-5.1); Sodium 143.0 mmol/L (136-145)
[2025-04-18 07:18] VITALS: BP 128/56; PULSE 55; TEMP 97.3; O2SAT 100
--- NOTE | 2025-04-18 10:20 | Surgery Progress Note ---
Date of Service April 18, 2025 Assessment & Plan (1) Colonic diverticular abscess: Plan: She is tolerating full liquids, can advance to low fiber diet She can be discharged later today with p.o. antibiotics No plans for any surgical intervention She does have follow-up with Dr. Gaytan this Saturday Admission and Anticipated Discharge Date Admission Date: April 16, 2025 Subjective Patient seen and examined. Tolerated full liquids. Denies abdominal pain. Afebrile. Review of Systems Constitutional: no fever and no chills Respiratory: no cough and no dyspnea Cardiovascular: no chest pain and no dyspnea on exertion Gastrointestinal: + constipation; no abdominal pain, no na usea, no vomiting and no diarrhea/loose stools Genitourinary: no dysuria and no urinary hesitancy Integumentary: no acne and no lesions Neurologic: no gait abnormality, no localized weakness and no headache(s) Psychiatric: no behavioral changes and no depression Hematologic / Lymphatic: no easy bleeding and no easy bruising Physical Exam Constitutional: WD/WN, vitals as above Eyes: PERRL, conjunctivae normal, anicteric sclerae Respiratory: normal respiratory effort, lungs clear to auscultation Cardiovascular: RRR, no murmur, no edema Gastrointestinal (Abdomen): normal bowel sounds, soft, nontender, no hepatosplenomegaly Musculoskeletal: no cyanosis or clubbing, extremities motor strength 5/5 Skin: no rashes, warm and dry Psychiatric: A+Ox3, euthymic affect Results & Data Vital Signs (Past 12 Hours) Vital Signs Temp Pulse Resp BP Pulse Ox O2 Del Method 04/18/25 07:15 36.3 C L 55 L 16 128/56 L 100 Room Air 04/17/25 23:32 36.7 C 67 16 144/74 H 97 Room Air PG Care Time/CCT Total # of Minutes Spent Total Time Spent with Patient: Total time spent is greater than 50% in coordination of care (as documented) at patient's floor/unit and/or counseling patient: Coding Level of Care Code 29496 SUB INP/OBS CARE 07/18MIN Diagnoses Colonic diverticular abscess K57.20
--- NOTE | 2025-04-18 12:47 | Discharge Summary ---
Discharge Summary Date of Service April 18, 2025 Principal Dx & Hospital Course #1 = Principal Diagnosis (1) Colonic diverticular abscess: (2) Hypertension: (3) Polycystic kidney, autosomal dominant: Plan Patient is a 54 y/o F w/ PMHx of ADPCKD, HTN, and iron deficiency anemia who was admitted for management of sigmoid diverticulitis with abscess formation. She was recently admitted to [facility] from 04/09-04/11 for the same and was discharged with Augmentin which she was taking, but in the last 1-2 days RADIOLOGY MANAGER she had not been strictly following low residual diet, which subsequently resulted in abdominal fullness with associated low-grade fever (Tmax 100 F) at home. #Diverticulitis with abscess - CT A/P on admission was concerning for intra-abdominal abscess with question of possible tubo-ovarian abscess. Pelvis ultrasound notes inflammatory changes in the right adnexa - TIRE REPAIRMAN consulted -tubo-ovarian abscess is highly unlikely, inflammatory changes likely related to diverticulitis. No history of TIRE REPAIRMAN pelvic infections, low risk for PID/tubo-ovarian abscess - General Surgery consulted - recommended conservative management with IV antibiotics - Diet advanced to full liquid - well-tolerating. Recommend continuing full liquid diet for a few days at home with advancement to low fiber diet as tolerated - Treated with Zosyn 4.5 mg IV Q8h while admitted. Can continue Augmentin BID to complete course - already has antibiotic at home so no prescription was sent on discharge - Follow-up with Dr. Gaytan as scheduled on 04/23/25 #HTN - Continue home lisinopril #Autosomal Dominant Polycystic Kidney Disease - Follows with Nephrology outpatient. Stable without issues at this time #Iron deficiency anemia - Hgb at baseline VTE ppx: Low risk; ambulation Dispo: Discharged home 04/18. Notes For Next Care Provider Follow-up with Dr. Gaytan as scheduled on 04/23 Medication Changes From Visit Instructed to resume Augmentin twice daily on discharge to complete coursealready has antibiotic at home so no prescription was sent on discharge Admission HPI Per Admitting Provider Lisa is a 54-year-old admitted for abdominal pain and abdominal pelvic fluid collection in the setting of a recent medically treated acute diverticulitis. Reports worsening of pain starting Saturday of this week and presented to the ED yesterday. Was on Augmentin outpatient for management of diverticulitis. Imaging showed no drainable fluid collection and nonspecific inflammatory changes. There is an area of concern in the right adnexa although ultrasound feels that this is most likely bowel related. Today patient reports that she is feeling markedly improved on current antibiotic course. Has started a clear liquid diet which she is so far tolerating well. Vitals have been normal since admission including no notable fevers. White count within normal range Discharge Exam General: No acute distress, nondiaphoretic, well-developed, well-nourished. Skin: Warm, dry. No rashes or peripheral edema noted Cardiac: Regular rate and rhythm without murmurs gallops or rubs. Pulm: Clear to auscultation bilaterally without wheezes, rales or rhonchi. Normal respiratory effort. 99% on room air. Abdominal: Soft, nontender, nondistended. Bowel sounds present. Neuro: A&O x3. No focal neurological deficits. Discharge Plan Discharge Items Patient Disposition: Home - Self-Care Reason For Visit: ABDOMINAL PAIN Discharge Diagnosis: Diverticulitis with abscess Condition on Discharge: Fair Activity: Resume your previous activity Non-emergency contact: Primary Care Provider and Surgeon Call non-emergency contact if: you have any medication questions, your symptoms worsen, your pain is not controlled and you have a fever Follow-up/Referrals: Alejandro Gaytan DO, FACS [Physician] - (Follow-up as scheduled on 04/23/2025) PCPTAYE [Primary Care Provider] - Diet: Full liquid Addtl Attending Provider Instructions: Juan Gonzalez were admitted to the hospital with recurrent diverticulitis with abscess. You were evaluated by the general surgery team who recommended conservative treatment. You were also evaluated by the controller repairer and tester due to concern on imaging for a tubo-ovarian abscess, but fortunately this was not the case and the abscess is related to your diverticulitis. You were treated with IV antibiotics and bowel rest while in the hospital. You are medically stable to be discharged home. Upon discharge from hospital: * Continue Augmentin (oral antibiotic) twice daily to complete your course. Since you have this antibiotic already at home, no prescription was sent to the pharmacy. Side effects of oral antibiotics include GI upset, so I recommend taking your antibiotic with food to prevent associated nausea/vomiting/diarrhea. * Follow a full liquid diet for the next few days, then you can slowly advance to a low fiber diet. * Continue your other usual home medications as prescribed. * Follow-up with Dr. Gaytan as scheduled on 04/23. Please return to the hospital if you experience any of the following: Fever of 100.5 F or higher, new or worsening abdominal pain, inability to tolerate oral intake, stool that has bright red blood or is black/tarry, difficulty breathing, chest pain, passing out, confusion, or any other symptoms concerning for you. It was a pleasure taking care of you while you were in the hospital! Pending Studies at Discharge: No Stand-Alone Forms: My [facility], Smoking Cessation Medications and DC Order Prescriptions: Continued [id number] 50 mcg-75 mcg -100 mg capsule 1 cap PO DAILY Qty: 90 0RF cholecalciferol (vitamin D3) 25 mcg (1,000 unit) capsule 25 mcg PO DAILY Qty: 30 0RF famotidine 20 mg Tablet 20 mg PO DAILY lisinopril 10 mg tablet 10 mg PO QAM amoxicillin-pot clavulanate 875-125 mg tablet 1 tab PO Q12H 14 Days Qty: 28 0RF Discharge Orders: Discharge Order (Routine); Ordered 04/18/25 Ordered By: Estefania Quezada Admission Data Admit Date/Time: 04/16/25 22:21 Attending Provider: Rene Her Admit Provider: Renetta Carreno Primary Care Provider: PCP,NO Other Providers: Sridhar Zuleta; Mingo Crowder; Oliver Shah Other Interventions: Discharge Summary Assessment (RN) Last Done: 04/18/25 11:09 Hospital Stay Data Consultations 04/16/25 20:06 ED Decision to Admit Stat 04/16/25 21:48 Consult General Surgery Stat 04/17/25 00:10 Consult General Surgery Routine 04/17/25 10:28 Consult Gynecology Routine Diagnostic Imagining Performed Chest X-Ray 04/16/25 14:39 SINGLE VIEW CHEST CLINICAL HISTORY: Sepsis FINDINGS: 2 AP, portable, upright chest radiographs are compared to study dated 06/06/2023. The cardiomediastinal silhouette is unremarkable. There is mild chronic elevation of the right hemidiaphragm. The lungs and pleural spaces are clear. No pneumothorax is seen. The bony thorax is grossly intact. IMPRESSION: No active disease in the chest. ACT 112: Negative or not required by law. Electronically signed by: Pawan Goode M.D. 04/16/2025 3:17 PM Abdomen/Pelvis CT 04/16/25 14:46 EXAMINATION: CT of the abdomen and pelvis performed after the administration of IV contrast. TECHNIQUE: Helical CT images from the lung bases through the symphysis pubis were obtained with contrast. Coronal and sagittal reformatted images were generated at a workstation for further assessment. Dose reduction techniques were achieved by using automatic exposure control and/or adjustment of mA and/or kV according to patient size and/or use of iterative reconstruction technique. HISTORY: Lower abdominal pain. Known abscess. Fevers. COMPARISON: April 09, 2025. Study report not available at the time of dictation. FINDINGS: Childcare Worker film demonstrates no acute abnormality. Calcifications projecting over the left abdomen again noted. Lung windows demonstrate mild subsegmental atelectasis. Soft tissue windows demonstrate at least moderate replacement of the liver parenchyma with multiple geographic hypodensities most consistent with cysts. Aids are difficult to reconcile with prior study but do not appear to be significantly changed. Additional enlarged bilateral kidneys with near complete replacement of the renal parenchyma secondary to what appear to be multiple cysts. Again reconciliation is difficult. Difficulty appreciating significant interval change. Calcifications involving left renal cyst do not appear to be significantly changed. Presacral edematous changes are noted. These are similar to prior study. There appears to be short segmental wall thickening of the rectosigmoid junction. No discrete mass. This does not appear to be significantly changed. Appendix is not identified with certainty. No secondary findings to indicate appendiceal disease. Prominent nonspecific fluid distended loops of small bowel. No heidy obstruction. Heterogeneous soft tissue at the level of the right adnexa. Right ovary is difficult to distinctly identify. No discrete drainable fluid collection. Etiology is uncertain. Hydrosalpinx or tubo-ovarian abscess cannot entirely be excluded. Remaining solid and hollow organs of the abdomen pelvis are within normal limits. Small amount of free fluid dependent pelvis. No free air. Bone windows demonstrate degenerative changes lumbosacral spine. No appreciated acute osseous process. IMPRESSION: 1. Cystic changes of the liver and bilateral kidneys likely representing polycystic kidney disease. Difficulty appreciating significant interval change. 2. Difficulty appreciating well-defined right adnexa/ovary. Soft tissue at this level may represent hydrosalpinx. Tubo-ovarian abscess at this level not entirely excluded. Pelvic ultrasound would be helpful for further characterization. Correlate with clinical data. 3. Appendix not identified. No discrete acute appendiceal disease. Correlate with clinical data. 4. Prominent fluid-filled small bowel without heidy obstruction. Mild ileus is not excluded. Enteritis cannot be excluded. 5. Short segmental wall thickening of the rectosigmoid junction. No discrete mass or obstruction. Correlate with clinical data. Direct visualization may be of benefit. Electronically signed by Vikash Granado 04-16-2025 4:47 PM Pelvis Ultrasound 04/16/25 17:03 Exam: Pelvic ultrasound. History: History of right pelvic abscess. Comparison: Correlation same-day CT and prior April 09, 2025 CT. Findings: Uterus measures 7.4 x 2.8 4.8 cm. Small hyperechoic acoustic impeding focus consistent with calcification at the level of the myometrium corresponding to density on prior CT. Myometrial echotexture is otherwise normal. Endometrial stripe measures 3 mm in thickness. This is within normal limits for patient's age. At the level of the right adnexa there is a small hyperechogenic focus demonstrated acoustic impedance consistent with calcification. This is likely represents a phlebolith and corresponds to prior CT. Soft tissue focus within the right adnexa measuring 3.5 x 2.2 x 2.9 cm likely representing the right ovary is noted. This demonstrates normal echotexture and flow. No definitive tubular fluid collection to indicate hydrosalpinx. There is a questionable thick-walled central fluid focus within the right adnexa. No discrete hyperemic wall. No definitive drainable fluid collection is identified. This may represent a thickened segment of large or small bowel. Associated phlegmonous process is not excluded. Left ovary measures 2.4 x 3.9 x 2.3 cm. Normal echotexture and flow noted. Trace free fluid adjacent to the right ovary. Impression: 1. Normal-appearing uterus and what is believed to be bilateral ovaries. 2. Thick-walled likely central small fluid pocket process within the right adnexa which may represent thickened walled large or small bowel. Early abscess cannot entirely be excluded. No definitive drainable fluid collection is identified. Recommend surgical consult and follow-up CT if clinical suspicion or symptoms persist despite therapy. Electronically signed by Vikash Granado 04-16-2025 8:45 PM Pending Results Patient Have Any Pending Studies at Discharge: No Discharge Instructions Given to Patient (Per Discharging Provider) Juan Gonzalez were admitted to the hospital with recurrent diverticulitis with abscess. You were evaluated by the general surgery team who recommended conservative treatment. You were also evaluated by the controller repairer and tester due to concern on imaging for a tubo-ovarian abscess, but fortunately this was not the case and the abscess is related to your diverticulitis. You were treated with IV antibiotics and bowel rest while in the hospital. You are medically stable to be discharged home. Upon discharge from hospital: * Continue Augmentin (oral antibiotic) twice daily to complete your course. Since you have this antibiotic already at home, no prescription was sent to the pharmacy. Side effects of oral antibiotics include GI upset, so I recommend taking your antibiotic with food to prevent associated nausea/vomiting/diarrhea. * Follow a full liquid diet for the next few days, then you can slowly advance to a low fiber diet. * Continue your other usual home medications as prescribed. * Follow-up with Dr. Gaytan as scheduled on 04/23. Please return to the hospital if you experience any of the following: Fever of 100.5 F or higher, new or worsening abdominal pain, inability to tolerate oral intake, stool that has bright red blood or is black/tarry, difficulty breathing, chest pain, passing out, confusion, or any other symptoms concerning for you. It was a pleasure taking care of you while you were in the hospital! Total Time Total Time Spent Total Time Spent (In Minutes): Greater than 30 minutes spent completing this discharge process including direct patient care, medication reconciliation, documentation, review of labs and images, and coordination of care. Coding Level of Care Code 72791 INP/OBS DISCH >30 MIN Diagnoses Colonic diverticular abscess K57.20 Hypertension I10 Polycystic kidney, autosomal dominant Q61.2
== END 2025-04-18 12:53 | disposition home or self-care (01) | DRG 392 ==
LOC: ED 14:02 → SUATTDRO 22:21 → 3W 22:21